=== PATIENT | male | born 1930 | race Caucasian/White ===

== ENCOUNTER 2017-02-28 00:44 | Emergency (ER) | payer OTHER, BC ==
[2017-02-28 01:16] VITALS: TEMP 98.2; BMI 22.4
[2017-02-28] MEDS ORDERED: morphine CARPU-JECT 2 MG/1 ML DISP.SYRIN IVPUSH ONE (04:02)
[2017-02-28] MEDS ORDERED: morphine CARPU-JECT 2 MG/1 ML DISP.SYRIN ONE (04:04)
[2017-02-28 04:28] LABS: BASOPHIL 0.4 % (0-2.0); MCH 31.9 pg (25.7-33.7); MCHC 33.2 g/dl (32.0-35.9); MEAN CELL VOLUME 96.2 fl (80-96); MEAN PLT VOLUME 9.1 fl (7.5-11.1); NEUTROPHILS 54.3 % (42.8-82.8); PLATELET COUNT 145 K/MM3 (134-434); RDW 12.6 % (11.9-15.9); WHITE BLOOD COUNT 7.5 K/mm3 (4.0-10.0)
[2017-02-28 04:41] LABS: INR 1.06 (0.82-1.09); PROTHROMBIN TIME (PATIENT) 11.7 SEC (9.98-11.88)
[2017-02-28] MEDS ORDERED: hydrALAZINE HCL 20 MG/ML VIAL IVPUSH ONE (04:50)
[2017-02-28] MEDS ORDERED: hydrALAZINE HCL 20 MG/ML VIAL ONE (04:52)
[2017-02-28 04:54] LABS: ALBUMIN 3.7 g/dl (3.4-5.0); ALK PHOS 56 U/L (45-117); ANION GAP 9 (8-16); BILIRUBIN,TOTAL 0.5 mg/dL (0.2-1.0); CO2 28 mmol/L (21-32); COCKROFT - GAULT 58.47; CREATININE 0.8 mg/dL (0.7-1.3); GLUCOSE,RANDOM 89 mg/dL (74-106); SGOT/AST 22 U/L (15-37); SGPT/ALT 17 U/L (12-78); TOT PROT 6.2 g/dl (6.4-8.2)
[2017-02-28 05:17] LABS: URINE APPEARANCE CLEAR; URINE BILIRUBIN NEGATIVE (NEGATIVE); URINE BLOOD NEGATIVE (NEGATIVE); URINE COLOR STRAW; URINE GLUCOSE (UA) NEGATIVE (NEGATIVE); URINE KETONE NEGATIVE (NEGATIVE); URINE LEUK ESTERASE NEGATIVE (NEGATIVE); URINE NITRITE NEGATIVE (NEGATIVE); URINE PROTEIN NEGATIVE (NEGATIVE); URINE UROBILINOGEN NEGATIVE E.U./dl (0.2-1.0)
--- NOTE | 2017-02-28 06:27 | PDOC ---
History of Present Illness - General Chief Complaint: Pain Stated Complaint: STOMACH PAIN Time Seen by Provider: 02/28/17 01:52 - History of Present Illness Initial Comments: 02/28/17 06:22 CHIEF COMPLAINT: abdominal pain HISTORY OF PRESENT ILLNESS: 86 yo M with significant PMH of AAA, HTN, HLD, GERD presents to ED with abdominal pain x 2 days. Patient describes the pain as sharp and 10/10. He denies any nausea, vomiting, diarrhea, or rectal bleeding. He denies any chest pain, shortness of breath, or palpitations as this time and complains that his pain is just in his abdomen. No recent travel or sick contacts. PAST MEDICAL HISTORY: Denies past medical history FAMILY HISTORY: Denies SOCIAL HISTORY: Denies tobacco, alcohol, illicit drug use. SURGICAL HISTORY: Denies ALLERGIES: No known drug allergies REVIEW OF SYSTEMS General/Constitutional: Denies fever or chills. Denies weakness, weight change. HEENT: Denies change in vision. Denies ear pain or discharge. Denies sore throat. Cardiovascular: Denies chest pain or shortness of breath. Respiratory: Denies cough, wheezing, or hemoptysis. Gastrointestinal: Abdominal pain. Denies nausea, vomiting, diarrhea or constipation. Denies rectal bleeding. Genitourinary: Denies dysuria, frequency, or change in urination. Musculoskeletal: Denies joint or muscle swelling or pain. Denies neck or back pain. Skin and breasts: Denies rash or easy bruising. Neurologic: Denies headache, vertigo, loss of consciousness, or loss of sensation. PHYSICAL EXAM General Appearance: Well-appearing, appropriately dressed. No apparent distress. HEENT: EOMI, PERRLA, normal ENT inspection, normal voice, TMs normal, pharynx normal. No conjunctival pallor. No photophobia, scleral icterus. Neck: Supple. Trachea midline. No tenderness, rigidity, carotid bruit, stridor , lymphadenopathy, or thyromegaly. Respiratory/Chest: Lungs CTAB. Cardiovascular: RRR. S1, S2. Vascular Pulses: Dorsalis-Pedis (R): 2+, Dorsalis-Pedis (L): 2+ Gastrointestinal/Abdominal: Diffuse tenderness to abdomen, somewhat localized to lower abdomen. Normal bowel sounds. Abdomen soft, non-distended. No tenderness or rebound tenderness. No organomegaly, pulsatile mass, guarding, hernia, hepatomegaly, splenomegaly. Lymphatic: No adenopathy, tenderness. Musculoskeletal/Extremities: Normal inspection. FROM of all extremities, normal capillary refill. Pelvis Stable. No CVA tenderness. No tenderness to extremities, pedal edema, swelling, erythema or deformity. Integumentary: Appropriate color, dry, warm. No cyanosis, erythema, jaundice or rash Neurologic: cloth checker II-XII intact. Fully oriented, alert. Appropriate mood/affect. Motor strength 5/5. No appreciable EOM palsy, facial droop or sensory deficit. 02/28/17 06:28 Past History - Past Medical History Allergies/Adverse Reactions: Allergies Allergy/AdvReac Type Severity Reaction Status Date / Time No Known Drug Allergies Allergy Verified 02/28/17 06:47 Home Medications: Ambulatory Orders Aspirin Coated [Ecotrin -] 81 mg PO DAILY 11/23/13 Olmesartan Medoxomil [Benicar -] 40 mg PO DAILY 11/23/13 Rosuvastatin Calcium [Crestor] 10 mg PO HS 11/23/13 Omeprazole [Prilosec (RX)] 20 mg PO DAILY 07/04/15 Anemia: No Asthma: No Cancer: No Cardiac Disorders: Yes (HAD CARDIAC CATH 04/2013 FOR CHECKUP AND WAS FINE) CVA: No COPD: No CHF: No Dementia: No Diabetes: No GI Disorders: No Disorders: Yes (BPH) HTN: Yes Hypercholesterolemia: Yes Liver Disease: No Seizures: No Thyroid Disease: No - Surgical History Abdominal Surgery: No Appendectomy: No Cardiac Surgery: No Cholecystectomy: No Lung Surgery: No Neurologic Surgery: No Orthopedic Surgery: No - Immunization History Immunization Up to Date: Yes - Psycho/Social/Smoking Cessation Hx Suicidal Ideation: No Smoking History: Never smoked Have you smoked in the past 12 months: No If you are a former smoker, when did you quit?: 1989 Information on smoking cessation initiated: No Hx Alcohol Use: No Drug/Substance Use Hx: No Substance Use Type: None Hx Substance Use Treatment: No *Physical Exam - Vital Signs Last Vital Signs Temp Pulse Resp BP Pulse Ox 98.2 F 62 18 164/70 100 02/28/17 01:12 02/28/17 05:15 02/28/17 05:15 02/28/17 05:15 02/28/17 05:15 ED Treatment Course - LABORATORY CBC & Chemistry Diagram: 02/28/17 04:05 02/28/17 04:05 - ADDITIONAL ORDERS Additional order review: Laboratory Results 02/28/17 02/28/17 02/28/17 04:57 04:05 04:05 WBC 7.5 RBC 3.40 L Hgb 10.8 L Hct 32.7 L MCV 96.2 H MCHC 33.2 RDW 12.6 Plt Count 145 MPV 9.1 Neutrophils % 54.3 Lymphocytes % 31.2 Monocytes % 10.1 Eosinophils % 4.0 Basophils % 0.4 INR Sodium 135 L Potassium 4.1 Chloride 98 Carbon Dioxide 28 Anion Gap 9 BUN 11 Creatinine 0.8 Creat Clearance w eGFR > 60 Random Glucose 89 Calcium 9.0 Total Bilirubin 0.5 D AST 22 ALT 17 D Alkaline Phosphatase 56 D Total Protein 6.2 L Albumin 3.7 Lipase 136 Urine Color Straw Urine Appearance Clear Urine pH 8.0 Urine Protein Negative Urine Glucose (UA) Negative Urine Ketones Negative Urine Blood Negative Urine Nitrite Negative Urine Bilirubin Negative Urine Urobilinogen Negative Ur Leukocyte Esterase Negative 02/28/17 04:05 WBC RBC Hgb Hct MCV MCHC RDW Plt Count MPV Neutrophils % Lymphocytes % Monocytes % Eosinophils % Basophils % INR 1.06 Sodium Potassium Chloride Carbon Dioxide Anion Gap BUN Creatinine Creat Clearance w eGFR Random Glucose Calcium Total Bilirubin AST ALT Alkaline Phosphatase Total Protein Albumin Lipase Urine Color Urine Appearance Urine pH Urine Protein Urine Glucose (UA) Urine Ketones Urine Blood Urine Nitrite Urine Bilirubin Urine Urobilinogen Ur Leukocyte Esterase 02/28/17 04:05 RBC 3.40 L MCV 96.2 H MCHC 33.2 RDW 12.6 MPV 9.1 Neutrophils % 54.3 Lymphocytes % 31.2 Monocytes % 10.1 Eosinophils % 4.0 Basophils % 0.4 - RADIOLOGY Radiology Studies Ordered: Category Date Time Status ABDOMEN & PELVIS CT W/WO CONTR [CT] Stat CT Scan 02/28/17 02:06 Taken - Medications Given in the ED: ED Medications Discontinued Medications Generic Name Dose Route Start Last Admin Trade Name Freq PRN Reason Stop Dose Admin Hydralazine HCl 10 mg 02/28/17 04:50 02/28/17 04:59 Apresoline Injection - IVPUSH 02/28/17 04:51 10 mg ONCE ONE Administration Morphine Sulfate 2 mg 02/28/17 04:02 05/18/17 04:16 Morphine Injection - IVPUSH 02/28/17 04:03 2 mg ONCE ONE Administration Medical Decision Making - Medical Decision Making 02/28/17 06:40 86 yo M with significant PMH of AAA, HTN, HLD, GERD presents to ED with abdominal pain x 2 days. Vitals signs notable for elevated BP 189/94. BP on L arm 171/83, R arm 185/84 -CBC, CMP, PT/INR, lipase, trop -Abdomen & pelvis CTA r/o AAA/dissection -2 mg morphine -10 mg hydralazine Repeat BP 164/70 Awaiting CTA. Case discussed in detail with oncoming emergency provider including history, physical exam and ancillary studies. In brief, this patient is being seen in the ED for a chief complaint of: abdominal pain I have completed the initial assessment interview note and have ordered the following labs: CBC, CMP/PT/INR, lipase, trop I have reviewed the following results: labs Pending results: cta Plan for disposition as follows: pending Oncoming NPA Jannie has assumed care for the patient and will complete the evaluation and treatment. *DC/Admit/Observation/Transfer Diagnosis at time of Disposition: Lower abdominal pain - Discharge Dispostion Disposition: HOME Condition at time of disposition: Good - Patient Instructions Printed Discharge Instructions: DI for Abdominal Pain-Adult Additional Instructions: Please follow-up with both vascular surgeon at [facility] Dr. An and your county bailiff Dr. Pepe Rizvi. Return to ED if your symptoms worsen.
[2017-02-28 07:26] LABS: TROPONIN I < 0.02 ng/ml (0.00-0.05)
--- NOTE | 2017-02-28 07:42 | PDOC ---
*Physical Exam - Vital Signs Last Vital Signs Temp Pulse Resp BP Pulse Ox 98.2 F 64 18 129/60 98 02/28/17 01:12 02/28/17 06:46 02/28/17 06:46 02/28/17 06:46 02/28/17 06:46 ED Treatment Course - LABORATORY CBC & Chemistry Diagram: 02/28/17 04:05 02/28/17 04:05 - ADDITIONAL ORDERS Additional order review: Laboratory Results 02/28/17 02/28/17 02/28/17 04:57 04:05 04:05 INR Sodium 135 L Potassium 4.1 Chloride 98 Carbon Dioxide 28 Anion Gap 9 BUN 11 Creatinine 0.8 Creat Clearance w eGFR > 60 Random Glucose 89 Calcium 9.0 Total Bilirubin 0.5 D AST 22 ALT 17 D Alkaline Phosphatase 56 D Creatine Kinase 74 Troponin I < 0.02 Total Protein 6.2 L Albumin 3.7 Lipase 136 Urine Color Straw Urine Appearance Clear Urine pH 8.0 Urine Protein Negative Urine Glucose (UA) Negative Urine Ketones Negative Urine Blood Negative Urine Nitrite Negative Urine Bilirubin Negative Urine Urobilinogen Negative Ur Leukocyte Esterase Negative 02/28/17 04:05 INR 1.06 Sodium Potassium Chloride Carbon Dioxide Anion Gap BUN Creatinine Creat Clearance w eGFR Random Glucose Calcium Total Bilirubin AST ALT Alkaline Phosphatase Creatine Kinase Troponin I Total Protein Albumin Lipase Urine Color Urine Appearance Urine pH Urine Protein Urine Glucose (UA) Urine Ketones Urine Blood Urine Nitrite Urine Bilirubin Urine Urobilinogen Ur Leukocyte Esterase 02/28/17 04:05 RBC 3.40 L MCV 96.2 H MCHC 33.2 RDW 12.6 MPV 9.1 Neutrophils % 54.3 Lymphocytes % 31.2 Monocytes % 10.1 Eosinophils % 4.0 Basophils % 0.4 - Medications Given in the ED: ED Medications Discontinued Medications Generic Name Dose Route Start Last Admin Trade Name Freq PRN Reason Stop Dose Admin Hydralazine HCl 10 mg 02/28/17 04:50 02/28/17 04:59 Apresoline Injection - IVPUSH 02/28/17 04:51 10 mg ONCE ONE Administration Morphine Sulfate 2 mg 02/28/17 04:02 02/28/17 04:16 Morphine Injection - IVPUSH 02/28/17 04:03 2 mg ONCE ONE Administration Medical Decision Making - Medical Decision Making 02/28/17 07:41 Patient received in sign out from YOLANDA Sharma. patient complaints of lower abdominal pain. Patient awaiting cardiac profile along with CT of the abdomen. Laboratory Tests 02/28/17 02/28/17 04:05 04:05 Alkaline Phosphatase 56 D Troponin I < 0.02 02/28/17 10:20 CT of the abdomen shows moderately thickened distal stomach and proximal duodenum could represent suboptimal distention or mild duodenitis/PUD.. Extensive small bowel diverticulosis is noted. This is diffuse hazy infiltration of the central bowel mesentery. 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 At the point of transition in the vein there is also a tethered flattened appearance of the SMV and proximal region. These vessels also appeared kinked and angulated on the coronal reformatted images with the occluded vessel. These findings are highly suggestive of the presence of band adhesions. There are small inguinal hernias noted bilaterally with short segment of nonobstructive bowel seen in the hernia on the left and a small segment of the urinary bladder and hernia on the right. Patient states pain is not present when lying down but has discomfort with movement. Patient points to the lower left suprapubic region. Patient will be discharged home to follow-up with his PCP Dr. Villar and given copy of report. call placed to Dr. Villar 02/28/17 10:[address] Villar and states patient has this known occluded vein and had been seen by Dr. Walker attempted to place a stent but was unable to an outpatient as fungal vascular physician at [facility] by the name of Dr. 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 He does recommend that I to contact Dr. Pepe Rizvi patient's entry level truck driver since he has upcoming tests and has been involved in patient' s care. 02/28/17 11:[address] Pepe Rizvi and is aware of patient's ER visit today and results of CT. Patient has a follow-up appointment with Dr. An in 2 weeks and has a nuclear medicine test scheduled for the . Patient will be discharged home. *DC/Admit/Observation/Transfer Diagnosis at time of Disposition: Lower abdominal pain - Discharge Dispostion Disposition: HOME Condition at time of disposition: Good - Patient Instructions Printed Discharge Instructions: DI for Abdominal Pain-Adult Additional Instructions: Please follow-up with both vascular surgeon at [facility] Dr. An and your entry level truck driver Dr. Pepe Rizvi. Return to ED if your symptoms worsen.
--- NOTE | 2017-02-28 11:34 | EKG ---
Test Reason : Blood Pressure : / mmHG Vent. Rate : 065 BPM Atrial Rate : 065 BPM P-R Int : 170 ms QRS Dur : 158 ms QT Int : 472 ms P-R-T Axes : 051 061 018 degrees QTc Int : 490 ms NORMAL SINUS RHYTHM RIGHT BUNDLE BRANCH BLOCK ABNORMAL ECG NO PREVIOUS ECGS AVAILABLE Confirmed by MARIBETH SMALLWOOD, CARMEN ([id number]) on 02/28/2017 11:34:19 AM Referred By: Confirmed By:CARMEN STAHL MD
[2017-02-28 12:07] VITALS: BP 154/78; PULSE 82
== END 2017-02-28 12:14 | disposition home or self-care (01) ==
LOC: JER 00:44
PROC: 3E033NZ Introduction of Analgesics, Hypnotics, Sedatives into Peripheral Vein, Percutaneous Approach (ICD-10-PCS; principal; 2017-02-28)
PROC: 3E033GC Introduction of Other Therapeutic Substance into Peripheral Vein, Percutaneous Approach (ICD-10-PCS; 2017-02-28)
DX: R10.30 Lower abdominal pain, unspecified (principal); I71.4 Abdominal aortic aneurysm, without rupture; I10 Essential (primary) hypertension; E78.5 Hyperlipidemia, unspecified; K21.9 Gastro-esophageal reflux disease without esophagitis; N40.0 Benign prostatic hyperplasia without lower urinary tract symptoms; Z98.61 Coronary angioplasty status
CPT/HCPCS: 36415; 74178-TC; 80053; 81003; 82550; 83690; 84484; 85025; 85610; 93005; 93010; 99282-25

== ENCOUNTER 2017-06-17 13:49 | Emergency (ER) | payer OTHER, BC ==
[2017-06-17 14:01] VITALS: BMI 19.4
--- NOTE | 2017-06-17 14:21 | PDOC ---
Attending Attestation - HPI HPI: 06/17/17 15:12 Patient is a 87 year old male with significant PMH of AAA, HTN, HLD, GERD presents to ED with vomiting and abdominal distention. The patient notes that he had a recent (05/10) celiac stent placed @ [facility]. Patient states that he was discharge after a month and was told to do small meals. He states that he has been having meals since being discharged. He notes that 1 day ago he had a huge meal involving donuts, lasagna and coffee. He states that he has not passed gas for 2 days. No recent travel or sick contacts. - Medical Decision Making 06/17/17 15:13 Documentation prepared by TERRENCE Ramon, acting as ophthalmic medical assistant for Luly Cartagena MD. <Kait Matthews - Last Filed: 06/17/17 15:18> - Resident Resident Name: BerthaNeva - ED Attending Attestation I have performed the following: I have examined & evaluated the patient, The case was reviewed & discussed with the resident, I agree w/resident's findings & plan, Exceptions are as noted - Physicial Exam PE: GENERAL: Awake, alert, and fully oriented, in no acute distress HEAD: No signs of trauma EYES: PERRLA, EOMI, sclera anicteric, conjunctiva clear ENT: Auricles normal inspection, hearing grossly normal, nares patent, oropharynx clear without exudates. Moist mucosa NECK: Normal ROM, supple, no lymphadenopathy, JVD, or masses LUNGS: Breath sounds equal, clear to auscultation bilaterally. No wheezes, and no crackles HEART: Regular rate and rhythm, normal S1 and S2, no murmurs, rubs or gallops ABDOMEN: Soft, distended, tympanitic, normoactive bowel sounds. No guarding, no rebound. No masses. +Healing midline abdominal incision. EXTREMITIES: Normal range of motion, no edema. No clubbing or cyanosis. No cords, erythema, or tenderness NEUROLOGICAL: Cranial nerves II through XII grossly intact. Normal speech, normal gait SKIN: Warm, Dry, normal turgor, no rashes or lesions noted. 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 After contacting the covering surgeon for Dr. An at [facility], will obtain ultrasound to evaluate the stent. For the distension, will obtain CT a/p to r/o SBO. <Luly Cartagena - Last Filed: 06/18/17 09:40>
[2017-06-17 14:41] LABS: BASOPHIL 0.2 % (0-2.0); EOSINOPHIL 0.2 % (0-4.5); MCH 33.9 pg (25.7-33.7); MCHC 33.6 g/dl (32.0-35.9); MEAN CELL VOLUME 100.8 fl (80-96); MEAN PLT VOLUME 9.2 fl (7.5-11.1); NEUTROPHILS 61.2 % (42.8-82.8); PLATELET COUNT 242 K/MM3 (134-434); RDW 15.6 % (11.9-15.9); WHITE BLOOD COUNT 10.4 K/mm3 (4.0-10.0)
--- NOTE | 2017-06-17 14:45 | PDOC ---
History of Present Illness - General Chief Complaint: Pain, Acute Stated Complaint: PAIN Time Seen by Provider: 06/17/17 14:06 History Source: Patient, Family - History of Present Illness Initial Comments: 06/17/17 16:08 CC: 1 day h/o of vomiting Patient is a 87 y.o. 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 Patient returned home from his surgery last week and since that time was eating small frequent meals, however, yesterday evening he had a large carbohydrate and fat meal. Patient then complained of throbbing abdominal pain and vomited (yellow, non- bloody) at 2 a.m. yesterday. Patient has vomited three times (all yellowish) prior to presentation and also c/o 1-2 day h/o constipation. Of note, patient' s family @ bedside notes patient was hospitalized following stent placement for approximately four weeks for SBO. Patient denies any chest pain, shortness of breath, diarrhea, or severe abdominal pain. Past History - Past Medical History Allergies/Adverse Reactions: Allergies Allergy/AdvReac Type Severity Reaction Status Date / Time No Known Drug Allergies Allergy Verified 06/17/17 13:51 Home Medications: Ambulatory Orders Aspirin Coated [Ecotrin -] 81 mg PO DAILY 11/23/13 Olmesartan Medoxomil [Benicar -] 40 mg PO DAILY 11/23/13 Rosuvastatin Calcium [Crestor] 10 mg PO HS 11/23/13 Omeprazole [Prilosec (RX)] 20 mg PO DAILY 07/04/15 Clopidogrel Bisulfate [Clopidogrel] 75 mg PO DAILY 06/17/17 Erythromycin Base [Erythromycin] 250 mg PO DAILY 06/17/17 Ondansetron [Ondansetron Odt] 8 mg PO DAILY 06/17/17 Anemia: No Asthma: No Cancer: No Cardiac Disorders: Yes (HAD CARDIAC CATH 04/2013 FOR CHECKUP ANDWAS FINE) CVA: No COPD: No CHF: No Dementia: No Diabetes: No GI Disorders: No Disorders: Yes (BPH) HTN: Yes Hypercholesterolemia: Yes Liver Disease: No Seizures: No Thyroid Disease: No - Surgical History Abdominal Surgery: Yes (abd artery stent) Appendectomy: No Cardiac Surgery: No Cholecystectomy: No GI Surgery: Yes (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) Lung Surgery: No Neurologic Surgery: No Orthopedic Surgery: No - Immunization History Immunization Up to Date: Yes - Psycho/Social/Smoking Cessation Hx Suicidal Ideation: No Smoking History: Never smoked Have you smoked in the past 12 months: No If you are a former smoker, when did you quit?: 1989 Information on smoking cessation initiated: No Hx Alcohol Use: No Drug/Substance Use Hx: No Substance Use Type: None Hx Substance Use Treatment: No Review of Systems - Review of Systems Constitutional: No: Chills, Fever Respiratory: No: Shortness of Breath Cardiac (ROS): No: Chest Pain ABD/GI: Yes: Abdominal Distended, Nausea, Vomiting Hematologic/Lymphatic: No: Blood Clots All Other Systems: Reviewed and Negative *Physical Exam - Vital Signs Last Vital Signs Temp Pulse Resp BP Pulse Ox 97.3 F L 97 H 18 117/83 97 06/17/17 13:51 06/17/17 13:51 06/17/17 13:51 06/17/17 13:51 06/17/17 14:32 - Physical Exam General Appearance: Yes: Nourished, Moderate Distress Neck: positive: Trachea midline, Supple Respiratory/Chest: positive: Lungs Clear, Normal Breath Sounds Cardiovascular: positive: Regular Rhythm, Regular Rate, S1, S2 Gastrointestinal/Abdominal: positive: Decreased BS, Distended, Other (Tympanic) Integumentary: positive: Normal Color, Dry, Warm Neurologic: positive: Fully Oriented, Alert ED Treatment Course - LABORATORY CBC & Chemistry Diagram: 06/17/17 14:24 06/17/17 14:24 - RADIOLOGY Radiology Studies Ordered: Category Date Time Status CHEST PA & LAT [RAD] Stat Radiology 06/17/17 14:18 Ordered Medical Decision Making - Medical Decision Making 06/17/17 14:46 Patient is an 87 y.o. 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 Initial DDx includes SBO vs. illeus vs. bowel stasis vs. gastritis PLAN 1. Lactic Acid 2. CBC, CMP 06/17/17 15:[address] Velasquez at [facility] ( ) covering for patient's surgeon Dr. Babu. Recommends Abdominal U/S with Doppler to evaluate flow in celiac artery as well as Abdominal X-ray. 06/17/17 17:21 Patient's Lactic Acid 2.3, Cr 1.4. Patient given [address] abdomen w/IV contrast (as per general surgery, no CT Abdomen with PO contrast) pending. 06/17/17 21:02 Phone Call received from [facility] [employer] Worker- preliminary read shows SBO + Incarcerated Inguinal Hernia 06/17/17 22:05 Patient to be transferred to [facility] for further surgical evaluation. ED Accepting Physician: Dr. Layo Mahan; Vascular Surgery Accepting Physician: Dr. Travis Brewster *DC/Admit/Observation/Transfer Diagnosis at time of Disposition: Small bowel obstruction - Discharge Dispostion Disposition: TRANSFER ACUTE CARE/OTHER HOSP Condition at time of disposition: Good Admit: No - Referrals Referrals: Jaxon Villar MD [Primary Care Provider] -
[2017-06-17 15:08] LABS: ALBUMIN 4.3 g/dl (3.4-5.0); ANION GAP 13 (8-16); CALCIUM 9.9 mg/dL (8.5-10.1); CO2 31 mmol/L (21-32); GLUCOSE,RANDOM 163 mg/dL (74-106)
[2017-06-17 15:09] LABS: INR 1.01 (0.82-1.09); PROTHROMBIN TIME (PATIENT) 11.1 SEC (9.98-11.88)
[2017-06-17 15:10] LABS: CREATININE 1.4 mg/dL (0.7-1.3); SGPT/ALT 31 U/L (12-78)
[2017-06-17 15:11] LABS: ALK PHOS 87 U/L (45-117); BILIRUBIN,TOTAL 0.5 mg/dL (0.2-1.0); TOT PROT 7.6 g/dl (6.4-8.2)
[2017-06-17 15:12] LABS: SGOT/AST 32 U/L (15-37); TROPONIN I < 0.02 ng/ml (0.00-0.05)
[2017-06-17 15:13] LABS: CPK 70 IU/L (39-308)
[2017-06-17] MEDS ORDERED: SODIUM CHLORIDE 0.9% 1000 ML INFUS.BAG IV ONE (17:08)
[2017-06-17] MEDS ORDERED: SODIUM CHLORIDE 1,000 ML IV STA (17:16)
[2017-06-17] MEDS ORDERED: DOCUSATE SODIUM 100 MG CAPSULE (FP) PO PRN (17:17)
[2017-06-17] MEDS ORDERED: HYDROmorphone HCL CARPU-JECT 1 MG/1 ML DISP.SYRIN IVPB ONE ×2 (17:17→22:19)
[2017-06-17] MEDS ORDERED: HYDROmorphone HCL CARPU-JECT 1 MG/1 ML DISP.SYRIN ONE ×2 (17:19→22:25)
[2017-06-17] MEDS ORDERED: ONDANSETRON 4 MG/2 ML VIAL ONE ×2 (17:23→20:34)
[2017-06-17] MEDS ORDERED: ONDANSETRON 4 MG/2 ML VIAL IVPB ONE ×2 (17:23→20:34)
[2017-06-17 19:00] LABS: INR 1.02 (0.82-1.09); PROTHROMBIN TIME (PATIENT) 11.2 SEC (9.98-11.88)
[2017-06-17 19:02] LABS: ACTIVATED PTT 32.2 SECONDS (26.9-34.4)
[2017-06-17 23:30] VITALS: BP 116/85; PULSE 92; TEMP 97.7
--- NOTE | 2017-06-18 18:05 | EKG ---
Test Reason : Blood Pressure : / mmHG Vent. Rate : 088 BPM Atrial Rate : 088 BPM P-R Int : 136 ms QRS Dur : 140 ms QT Int : 396 ms P-R-T Axes : 027 076 018 degrees QTc Int : 479 ms SINUS RHYTHM WITH FREQUENT VPCs,SINGLE ANDUNIFOCAL RIGHT BUNDLE BRANCH BLOCK ABNORMAL ECG WHEN COMPARED WITH ECG OF 28-FEB-2017 06:51, BASELINE ARTIFACTS REPEAT EKG IF CLINICALLY INDICATED Confirmed by WENDY HOLLIS MD ([id number]) on 06/18/2017 6:04:51 PM Referred By: Confirmed By:WENDY HOLLIS MD
== END 2017-06-18 00:21 | disposition short-term general hospital (02) ==
LOC: JER 13:49
PROC: 3E0337Z Introduction of Electrolytic and Water Balance Substance into Peripheral Vein, Percutaneous Approach (ICD-10-PCS; principal; 2017-06-17)
PROC: 3E033NZ Introduction of Analgesics, Hypnotics, Sedatives into Peripheral Vein, Percutaneous Approach (ICD-10-PCS; 2017-06-17)
PROC: 3E033GC Introduction of Other Therapeutic Substance into Peripheral Vein, Percutaneous Approach (ICD-10-PCS; 2017-06-17)
DX: K56.69 Other intestinal obstruction (principal); Z98.890 Other specified postprocedural states; I10 Essential (primary) hypertension; E78.00 Pure hypercholesterolemia, unspecified; K21.9 Gastro-esophageal reflux disease without esophagitis; Z86.79 Personal history of other diseases of the circulatory system
CPT/HCPCS: 36415; 71020-TC; 74177-TC; 76705-TC; 80053; 83605; 84484; 85025; 85610; 85730; 93005; 93010; 96361; 96374; 96375; 99285-25

== ENCOUNTER 2017-09-20 15:20 | Inpatient (IN) | payer OTHER, BC ==
--- NOTE | 2017-09-20 15:24 | PDOC ---
Rapid Medical Evaluation Time Seen by Provider: 09/20/17 15:23 Medical Evaluation: Allergies Allergy/AdvReac Type Severity Reaction Status Date / Time No Known Drug Allergies Allergy Verified 06/17/17 13:51 09/20/17 15:24 I have performed a brief in-person evaluation of this patient. The patient presents with a chief complaint of: Abd pain w/ n/v. H/o AAA, HTN, HLD, GERD, s/p recent ED visit for abd pain s/p placement of celiac stent at [facility] , found to have high grade SBO and was transferred to [facility]. Surgeon is Dr An at [facility] Pertinent physical exam findings: Stable but appears uncomfortable, actively vomiting in triage w/ diffuse ttp to abd I have ordered the following:cbc/chem/lipase/ua/T&S/coags The patient will proceed to the ED for further evaluation.
[2017-09-20 16:00] LABS: BASOPHIL 0.2 % (0-2.0); EOSINOPHIL 0.7 % (0-4.5); MCH 32.7 pg (25.7-33.7); MEAN CELL VOLUME 96.2 fl (80-96); MEAN PLT VOLUME 8.2 fl (7.5-11.1); NEUTROPHILS 57.7 % (42.8-82.8); PLATELET COUNT 205 K/MM3 (134-434); RDW 12.9 % (11.9-15.9); WHITE BLOOD COUNT 10.2 K/mm3 (4.0-10.0)
[2017-09-20 16:27] LABS: URINE APPEARANCE SLCLOUDY; URINE BILIRUBIN NEGATIVE (NEGATIVE); URINE BLOOD NEGATIVE (NEGATIVE); URINE COLOR DKYELLOW; URINE GLUCOSE (UA) NEGATIVE (NEGATIVE); URINE KETONE NEGATIVE (NEGATIVE); URINE LEUK ESTERASE NEGATIVE (NEGATIVE); URINE NITRITE NEGATIVE (NEGATIVE); URINE PROTEIN NEGATIVE (NEGATIVE); URINE UROBILINOGEN NEGATIVE mg/dL (0.2-1.0)
[2017-09-20 16:31] LABS: INR 0.99 (0.82-1.09); PROTHROMBIN TIME (PATIENT) 11.2 SEC (9.98-11.88)
[2017-09-20 16:43] LABS: ALBUMIN 3.8 g/dl (3.4-5.0); ANION GAP 8 (8-16); BILIRUBIN,TOTAL 0.6 mg/dL (0.2-1.0); CALCIUM 9.4 mg/dL (8.5-10.1); CO2 30 mmol/L (21-32); CREATININE 0.8 mg/dL (0.7-1.3); GLUCOSE,RANDOM 139 mg/dL (74-106); SGOT/AST 32 U/L (15-37); SGPT/ALT 32 U/L (12-78)
[2017-09-20 16:47] LABS: ALK PHOS 77 U/L (45-117); CPK 39 IU/L (39-308); TOT PROT 7.6 g/dl (6.4-8.2); TROPONIN I < 0.02 ng/ml (0.00-0.05)
--- NOTE | 2017-09-20 17:41 | PDOC ---
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 The patient describes his abdominal pain as a constant waxing and waning. Secondary to his abdominal pain, he reports 4 episodes of nonbloody, nonbilious emesis.The patient reports two bowel movements this morning and since then obstipation. He denies any recent fevers, chills, headache or dizziness. He denies any diarrhea or constipation. He denies any recent chest pain or shortness of breath. He denies any recent dysuria, frequency, urgency or hematuria. Allergies: NKA Social History: Nonsmoker. Denies EtOH use and recreational drug use. Primary Care Physician: Dr. Jaxon Villar <Marcelle Weaver - Last Filed: 09/20/17 18:49> <Reza Alicea - Last Filed: 09/20/17 23:39> - General Chief Complaint: Pain, Acute Stated Complaint: COLD SYMPTOMS Time Seen by Provider: 09/20/17 15:23 Past History <Marcelle Weaver - Last Filed: 09/20/17 18:49> - Past Medical History Anemia: No Asthma: No Cancer: No Cardiac Disorders: Yes (HAD CARDIAC CATH 04/2013 FOR CHECKUP ANDWAS FINE) CVA: No COPD: No CHF: No Dementia: No Diabetes: No GI Disorders: No Disorders: Yes (BPH) HTN: Yes Hypercholesterolemia: Yes Liver Disease: No Seizures: No Thyroid Disease: No - Surgical History Abdominal Surgery: Yes (abd artery stent) Appendectomy: No Cardiac Surgery: No Cholecystectomy: No GI Surgery: Yes (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) Lung Surgery: No Neurologic Surgery: No Orthopedic Surgery: No - Immunization History Immunization Up to Date: Yes - Suicide/Smoking/Psychosocial Hx Smoking History: Former smoker Have you smoked in the past 12 months: No If you are a former smoker, when did you quit?: 1989 Information on smoking cessation initiated: No Hx Alcohol Use: No Drug/Substance Use Hx: No Substance Use Type: None Hx Substance Use Treatment: No <Reza Alicea - Last Filed: 09/20/17 23:39> - Past Medical History Allergies/Adverse Reactions: Allergies Allergy/AdvReac Type Severity Reaction Status Date / Time No Known Drug Allergies Allergy Verified 09/20/17 15:29 Home Medications: Ambulatory Orders Aspirin Coated [Ecotrin -] 81 mg PO DAILY 11/23/13 Olmesartan Medoxomil [Benicar -] 40 mg PO DAILY 11/23/13 Rosuvastatin Calcium [Crestor] 10 mg PO HS 11/23/13 Omeprazole [Prilosec (RX)] 20 mg PO DAILY 07/04/15 Clopidogrel Bisulfate [Clopidogrel] 75 mg PO DAILY 06/17/17 Erythromycin Base [Erythromycin] 250 mg PO DAILY 06/17/17 Ondansetron [Ondansetron Odt] 8 mg PO DAILY 06/17/17 Review of Systems - Review of Systems Able to Perform ROS?: Yes Comments:: 09/20/17 18:31 CONSTITUTIONAL: No fever, no chills, no fatigue EYES: No visual changes ENT: No ear pain, no sore throat CARDIOVASCULAR: No chest pain, no palpitations RESPIRATORY: No cough, no SOB GI:+Abdominal pain. +Emesis. No constipation, no diarrhea GENITOURINARY: No dysuria, no frequency, no hematuria MUSKULOSKELETAL: No backpain, no joint pain, no myalgias SKIN: No rash NEURO: No headache All Other Systems: Reviewed and Negative <Marcelle Weaver - Last Filed: 09/20/17 18:49> *Physical Exam - Vital Signs Last Vital Signs Temp Pulse Resp BP Pulse Ox 97.5 F L 79 16 147/98 99 09/20/17 15:24 09/20/17 15:24 09/20/17 15:24 09/20/17 15:24 09/20/17 15:24 - Physical Exam Comments: 09/20/17 18:49 CONSTITUTIONAL: Well-appearing; well-nourished; in no apparent distress HEAD: Normocephalic; atraumatic EYES: PERRL; EOM intact ENMT: +Dry mucous membranes. External appears normal; normal oropharynx NECK: Supple; non-tender; no cervical lymphadenopathy CARD: + 3 of 6 systolic ejection murmur. No rubs, or gallops RESP: Normal chest excursion with respiration; breath sounds clear and equal bilaterally; no wheezes, rhonchi, or rales ABD: +Soft minimally distended tympanic. +Hyperactive bowel sounds. +Tender in the periumbilical area without guarding or rebound. No palpable organomegaly, no palpable hernias EXT: Normal ROM in all four extremities; non-tender to palpation; distal pulses intact SKIN: Warm, dry, no rash NEURO: No focal neurological deficiencies. <Marcelle Weaver - Last Filed: 09/20/17 18:49> - Vital Signs Last Vital Signs Temp Pulse Resp BP Pulse Ox 97.5 F L 79 16 147/98 99 09/20/17 15:24 09/20/17 15:24 09/20/17 15:24 09/20/17 15:24 09/20/17 15:24 <Reza Alicea - Last Filed: 09/20/17 23:39> ED Treatment Course - LABORATORY CBC & Chemistry Diagram: 09/20/17 15:31 09/20/17 15:50 - ADDITIONAL ORDERS Additional order review: Laboratory Results 09/20/17 09/20/17 09/20/17 15:50 15:50 15:50 PT with INR 11.20 INR 0.99 Sodium Potassium Chloride Carbon Dioxide Anion Gap BUN Creatinine Creat Clearance w eGFR Random Glucose Lactic Acid 1.8 Calcium Total Bilirubin AST ALT Alkaline Phosphatase Creatine Kinase Troponin I Total Protein Albumin Lipase Urine Color Urine Appearance Urine pH Ur Specific [place] Urine Protein Urine Glucose (UA) Urine Ketones Urine Blood Urine Nitrite Urine Bilirubin Urine Urobilinogen Blood Type A POSITIVE Antibody Screen Negative 09/20/17 09/20/17 15:50 15:45 PT with INR INR Sodium 133 L Potassium 4.3 Chloride 95 L Carbon Dioxide 30 Anion Gap 8 BUN 11 D Creatinine 0.8 D Creat Clearance w eGFR > 60 Random Glucose 139 H Lactic Acid Calcium 9.4 Total Bilirubin 0.6 AST 32 ALT 32 Alkaline Phosphatase 77 Creatine Kinase 39 Troponin I < 0.02 Total Protein 7.6 Albumin 3.8 Lipase 282 Urine Color Dkyellow Urine Appearance Slcloudy Urine pH 8.0 Ur Specific [place] 1.018 Urine Protein Negative Urine Glucose (UA) Negative Urine Ketones Negative Urine Blood Negative Urine Nitrite Negative Urine Bilirubin Negative Urine Urobilinogen Negative Blood Type Antibody Screen 09/20/17 15:31 RBC 3.90 L MCV 96.2 H MCHC 34.0 RDW 12.9 D MPV 8.2 D Neutrophils % 57.7 Lymphocytes % 33.7 D Monocytes % 7.7 Eosinophils % 0.7 D Basophils % 0.2 <Marcelle Weaver - Last Filed: 09/20/17 18:49> - LABORATORY CBC & Chemistry Diagram: 09/20/17 15:31 09/20/17 15:50 - ADDITIONAL ORDERS Additional order review: Laboratory Results 09/20/17 09/20/17 09/20/17 15:50 15:50 15:50 PT with INR 11.20 INR 0.99 Sodium 133 L Potassium 4.3 Chloride 95 L Carbon Dioxide 30 Anion Gap 8 BUN 11 D Creatinine 0.8 D Creat Clearance w eGFR > 60 Random Glucose 139 H Lactic Acid 1.8 Calcium 9.4 Total Bilirubin 0.6 AST 32 ALT 32 Alkaline Phosphatase 77 Creatine Kinase 39 Troponin I < 0.02 Total Protein 7.6 Albumin 3.8 Lipase 282 Urine Color Urine Appearance Urine pH Ur Specific [place] Urine Protein Urine Glucose (UA) Urine Ketones Urine Blood Urine Nitrite Urine Bilirubin Urine Urobilinogen 09/20/17 15:45 PT with INR INR Sodium Potassium Chloride Carbon Dioxide Anion Gap BUN Creatinine Creat Clearance w eGFR Random Glucose Lactic Acid Calcium Total Bilirubin AST ALT Alkaline Phosphatase Creatine Kinase Troponin I Total Protein Albumin Lipase Urine Color Dkyellow Urine Appearance Slcloudy Urine pH 8.0 Ur Specific [place] 1.018 Urine Protein Negative Urine Glucose (UA) Negative Urine Ketones Negative Urine Blood Negative Urine Nitrite Negative Urine Bilirubin Negative Urine Urobilinogen Negative 09/20/17 15:31 RBC 3.90 L MCV 96.2 H MCHC 34.0 RDW 12.9 D MPV 8.2 D Neutrophils % 57.7 Lymphocytes % 33.7 D Monocytes % 7.7 Eosinophils % 0.7 D Basophils % 0.2 <Reza Alicea - Last Filed: 09/20/17 23:39> Medical Decision Making - Medical Decision Making 09/20/17 19:53 Patient is an 87-year-old male with history of multiple abdominal surgeries, history of SBO in the past who presents with intermittent abdominal pain and several episodes of nonbloody, nonbilious vomiting. 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 Chest x-ray revealed no evidence of free air under the diaphragm. Abdominal series x-ray revealed no evidence of dilated loops of bowel, several air-fluid levels are noted, large amount of retained stool is also noted. Patient is unable tolerate by mouth contrast and will receive NG tube decompression. Will obtain CT that and pelvis to rule out SBO. Will continue to resuscitated with IV fluids. Surgical consult as needed. 09/20/17 22:37 NG tube placed and a proximally 1200 mL of gastric fluid was aspirated with significant improvement in patient's pain. CT of abdomen and pelvis has been obtained. Patient is resting comfortably at this time. Awaiting results. 09/20/17 23:33 CT of abdomen and pelvis shows SBO with gastric distention and NG tube in place. Right posterior infiltrate is noted, patient reports that he has no cough and has been treated for influenza. Will withhold antibiotic therapy at this time. We'll consult surgery. Patient's family wishes the patient to be transferred to Dr. Sabino SHERWOOD at [facility] if he requires surgery. Dr. Herzog's number is [phone] <Reza Alicea - Last Filed: 09/20/17 23:39> *DC/Admit/Observation/Transfer - Attestations Scribe Attestion: 09/20/17 18:30 Documentation prepared by Marcelle Weaver, acting as medical device for Reza Alicea MD. <Marcelle Weaver - Last Filed: 09/20/17 18:49> - Discharge Dispostion Admit: Yes - Attestations Physician Attestion: 09/20/17 19:52 The documentation was prepared by the scribe under my direct supervision. I have reviewed the documentation which correctly represents the findings, medical decision-making and critical action taken by me. <Reza Alicea - Last Filed: 09/20/17 23:39> Diagnosis at time of Disposition: Small bowel obstruction - Discharge Dispostion Condition at time of disposition: Fair - Referrals Referrals: Jaxon Villar MD [Primary Care Provider] - - Patient Instructions - Post Discharge Activity
[2017-09-20] MEDS ORDERED: SODIUM CHLORIDE 500 ML IV STA ×2 (17:51→18:36)
[2017-09-20] MEDS ORDERED: ONDANSETRON 4 MG/2 ML VIAL IVPUSH ONE (18:39)
[2017-09-20] MEDS ORDERED: ONDANSETRON 4 MG/2 ML VIAL ONE (18:42)
[2017-09-20 18:46] LABS: URINE LEUK ESTERASE Negative (NEGATIVE)
[2017-09-20] MEDS ORDERED: morphine CARPU-JECT 2 MG/1 ML DISP.SYRIN IVPUSH ONE ×2 (19:20→19:27)
[2017-09-20] MEDS ORDERED: morphine SULFATE 4 MG/ML VIAL ONE (19:22)
[2017-09-20] MEDS ORDERED: D5-1/2NS+40 MEQ KCL - 40 MEQ/1,000 ML INFUS.BAG IV SCH (23:15)
[2017-09-21] MEDS ORDERED: ACETAMINOPHEN 1000 MG/100 ML VIAL (NON FORMULARY) IVPB ONE (00:19)
[2017-09-21] MEDS ORDERED: ACETAMINOPHEN INJECTION 100 ML IVPB ONE (00:23)
[2017-09-21] MEDS ORDERED: DEXTROSE 5%-0.45% SALINE 1,000 ML IV SCH (01:00)
--- NOTE | 2017-09-21 02:15 | HP ---
CHIEF COMPLAINT: Abdominal Pain PCP: Dr. Villar HISTORY OF PRESENT ILLNESS: Patient is an 87 year old male with a PMHx of HTN, HLD, CAD on Aspirin, Abdominal Aortic Aneurysm, Atheresclerosis of the celiac trunk, SBO with multiple abdominal surgeries who presents today for midepigastric pain described as a sharp intermittent pain occurring throughout the day and is non radiating. Patient states he has been unable to tolerate food today due to the pain. He reports no alleviating or exacerbating factors, however he does report nonbloody nonbilious vomiting that does relieve the pain but returns within minutes. Patient however does report that he was recently diagnosed with the Flu and received treatment for it. Patient does admit to having similar symptoms in the past that were consistent with his previous SBO. Patient reports this summer he was in the hospital at [facility] for two months due to an abdominal surgery. Patient denies any diet changes or changes to his bowels. Patient does report having a colonoscopy 10 years ago and does not know if he needs another one. Patient denies chronic NSAID use. Otherwise, patient denies fever, chills, nausea, chest pain, palpitations, shortness of breath, headaches, dizziness, loss of consciousness, hematuria, dysuria, melena, hematochezia, hematemesis. ER course was notable for: (1) CT abdomen reveals SBO (2) NG tube placed and drained 1200cc (3) Morphine, Zofran and fluids given in ED Recent Travel: [place] three years ago PAST MEDICAL HISTORY: HTN, HLD, CAD on Aspirin, Abdominal Aortic Aneurysm, Atheresclorosis of the celiac trunk, High grade SBO PAST SURGICAL HISTORY: Celiac stenting (2017) Social History: Smoking: Former Smoker. Quit over 25 years ago Alcohol: Wine socially Drugs: Denies Family History: Non-contributory Allergies: No Known Drug Allergies Allergy (Verified 09/20/17 15:29) HOME MEDICATIONS: Home Medications Medication Instructions Recorded Aspirin Coated [Ecotrin -] 81 mg PO DAILY 11/23/13 Olmesartan Medoxomil [Benicar -] 40 mg PO DAILY 11/23/13 Rosuvastatin Calcium [Crestor] 10 mg PO HS 11/23/13 Omeprazole [Prilosec (RX)] 20 mg PO DAILY 07/04/15 Clopidogrel Bisulfate [Clopidogrel] 75 mg PO DAILY 06/17/17 Erythromycin Base [Erythromycin] 250 mg PO DAILY 06/17/17 Ondansetron [Ondansetron Odt] 8 mg PO DAILY 06/17/17 REVIEW OF SYSTEMS CONSTITUTIONAL: Absent: fever, chills, diaphoresis, generalized weakness, malaise, loss of appetite, weight change HEENT: Absent: rhinorrhea, nasal congestion, throat pain, throat swelling, difficulty swallowing, mouth swelling, ear pain, eye pain, visual changes CARDIOVASCULAR: Absent: chest pain, syncope, palpitations, irregular heart rate, lightheadedness , peripheral edema RESPIRATORY: Absent: cough, shortness of breath, dyspnea with exertion, orthopnea, wheezing, stridor, hemoptysis GASTROINTESTINAL: abdominal pain, abdominal distension, nausea, vomiting Absent: diarrhea, constipation, melena, hematochezia GENITOURINARY: Absent: dysuria, frequency, urgency, hesitancy, hematuria, flank pain, genital pain MUSCULOSKELETAL: Absent: myalgia, arthralgia, joint swelling, back pain, neck pain SKIN: Absent: rash, itching, pallor HEMATOLOGIC/IMMUNOLOGIC: Absent: easy bleeding, easy bruising, lymphadenopathy, frequent infections ENDOCRINE: Absent: unexplained weight gain, unexplained weight loss, heat intolerance, cold intolerance NEUROLOGIC: Absent: headache, focal weakness or paresthesias, dizziness, unsteady gait, seizure, mental status changes, bladder or bowel incontinence PSYCHIATRIC: Absent: anxiety, depression, suicidal or homicidal ideation, hallucinations. PHYSICAL EXAMINATION Vital Signs - 24 hr 09/20/17 09/20/17 15:24 22:38 Temperature 97.5 F L Pulse Rate 79 Pulse Rate [ 86 Left Radial] Respiratory 16 18 Rate Blood Pressure 147/98 Blood Pressure 147/90 [Right Arm] O2 Sat by Pulse 99 97 Oximetry (%) GENERAL: Awake, alert, and fully oriented, in no acute distress. HEAD: Normal with no signs of trauma. EYES: Epiphora bilaterally. Pupils equal, round and reactive to light, extraocular movements intact, sclera anicteric, conjunctiva clear. EARS, NOSE, THROAT: NG tube placed draining dark gastric fluid. Oropharynx clear without exudates. Dry mucous membranes. NECK: Normal range of motion, supple without lymphadenopathy, JVD, or masses. LUNGS: Breath sounds equal, clear to auscultation bilaterally. No wheezes, and no crackles. No accessory muscle use. HEART: Regular rate and rhythm, 3/6 systolic ejection murmur in RUSB with normal S1 and S2 without rub or gallop. ABDOMEN: Soft, with tenderness upon palpation of mid-epigastric region, distended with hyperactive bowel sounds, no guarding, no rebound, no masses. V ertical incision scar from above the periumbilical region to the suprapubic region. No hepatomegaly or splenomegaly. MUSCULOSKELETAL: No CVA tenderness. UPPER EXTREMITIES: No peripheral edema. LOWER EXTREMITIES: No peripheral edema. NEUROLOGICAL: Cranial nerves II-XII intact. Normal speech. Motor strength 5/5 bilaterally with sensory intact. No facial droop PSYCHIATRIC: Cooperative. Good eye contact. Appropriate mood and affect. SKIN: Warm, dry, normal turgor, no rashes or lesions noted, normal capillary refill. Laboratory Results - last 24 hr 09/20/17 09/20/17 09/20/17 15:31 15:45 15:50 WBC 10.2 H RBC 3.90 L Hgb 12.7 Hct 37.5 MCV 96.2 H MCH 32.7 MCHC 34.0 RDW 12.9 D Plt Count 205 MPV 8.2 D Neutrophils % 57.7 Lymphocytes % 33.7 D Monocytes % 7.7 Eosinophils % 0.7 D Basophils % 0.2 PT with INR INR Sodium 133 L Potassium 4.3 Chloride 95 L Carbon Dioxide 30 Anion Gap 8 BUN 11 D Creatinine 0.8 D Creat Clearance w eGFR > 60 Random Glucose 139 H Lactic Acid Calcium 9.4 Total Bilirubin 0.6 AST 32 ALT 32 Alkaline Phosphatase 77 Creatine Kinase 39 Troponin I < 0.02 Total Protein 7.6 Albumin 3.8 Lipase 282 Urine Color Dkyellow Urine Appearance Slcloudy Urine pH 8.0 Ur Specific [place] 1.018 Urine Protein Negative Urine Glucose (UA) Negative Urine Ketones Negative Urine Blood Negative Urine Nitrite Negative Urine Bilirubin Negative Urine Urobilinogen Negative Ur Leukocyte Esterase Negative Blood Type Antibody Screen 09/20/17 09/20/17 09/20/17 15:50 15:50 15:50 WBC RBC Hgb Hct MCV MCH MCHC RDW Plt Count MPV Neutrophils % Lymphocytes % Monocytes % Eosinophils % Basophils % PT with INR 11.20 INR 0.99 Sodium Potassium Chloride Carbon Dioxide Anion Gap BUN Creatinine Creat Clearance w eGFR Random Glucose Lactic Acid 1.8 Calcium Total Bilirubin AST ALT Alkaline Phosphatase Creatine Kinase Troponin I Total Protein Albumin Lipase Urine Color Urine Appearance Urine pH Ur Specific [place] Urine Protein Urine Glucose (UA) Urine Ketones Urine Blood Urine Nitrite Urine Bilirubin Urine Urobilinogen Ur Leukocyte Esterase Blood Type A POSITIVE Antibody Screen Negative IMAGES Abdominal X-Ray (09/20/17): In comparison to a CT exam of 06/17/2017 there is no longer definite visualization of a mid to distal small bowel obstruction. Mild to moderate small bowel obstruction may not be demonstrable on radiography. Follow-up CT may be considered. Interval development of increased opacity is seen within the left upper and mid abdomen - ? due to fluid-filled gastric overdistention, splenomegaly versus other pathology. Correlate with CT or close follow-up radiography, as clinically indicated. Rectal fecal retention which is probably moderate. There is no definite radiographic evidence of pneumoperitoneum. A 3.3 cm infrarenal aortic aneurysm noted on CT cannot be appreciated on radiography. CT Abdomen/Pelvis (09/20/17): In comparison to a previous CT exam of 06/17/2017 note is made of marked partial improvement of a mid to distal small bowel obstruction. On the current exam several mid to distal small bowel loops demonstrate mild to moderate distention consistent with residual/recurrent obstruction. Interval resolution of a small amount of free fluid is noted within the abdomen and pelvis. Moderate fluid-filled gastric distention is seen which appears improved in comparison to radiography performed earlier the same date following interval nasogastric tube insertion. Interval development of a small right basilar infiltrate is noted posteriorly. The remainder of the exam demonstrates no definite interval change. 3.4 cm infrarenal aortic aneurysm. Celiac artery stent in place. Chest X-Ray (09/20/17): Since 06/17/2017, the cardiac silhouette remains within normal limits in size. There are minimal atelectatic changes in the right lung base, medially. The rest of the lung is clear. Mediastinum and visualized osseous structures appear intact with mild and dextroscoliosis of the thoracic spine and mild degenerative changes ASSESSMENT/PLAN: Patient is an 87 year old male who presented today with worsening abdominal pain. CT revealed SBO and NG tube was placed with 1200 mls of gastric fluids. Patient admitted for further monitoring and management. Small Bowel Obstruction -Patient has history of SBO s/p celiac stenting. NG tube placed today with around 1200mls of gastric fluid. -CT revealed distal small bowel loops with moderagte distention consistent with obstruction. -Will continue to keep NPO -Continue and maintain NG tube -Pain control with Morphine 2mg IVP Q4H PRN -Hydration with IV NS @75mls/hr -Surgery consult placed. However, Patient's family wishes the patient to be transferred to Dr. Sabino SHERWOOD at [facility] if he requires surgery. Dr. Herzog's number is [phone] -Patient has no fevers, chills, lactic acidosis, not consistent with septic picture. Will monitor off antibiotics for now. HTN-Controlled -Patient currently takes Benicar 40mg daily but we do not have it so placed on Diovan 320mg -Continue to monitor BP HLD -Lipid panel ordered -Continue home medication Crestor 10mg daily CAD -Continue Aspirin 81mg daily F/E/N -IV NS @75mls/hr -Electrolytes wnl -NPO Prophylaxis -High Risk. Heparin 5000 units SQ Q8H for DVT -No GI required Disposition -Full code -Found to have SBO. On NG tube. Awaiting Surgery consult. Will require Inpatient for at least another night Visit type - Emergency Visit Emergency Visit: Yes ED Registration Date: 09/20/17 Care time: The patient presented to the Emergency Department on the above date and was hospitalized for further evaluation of their emergent condition. - New Patient This patient is new to me today: Yes Date on this admission: 09/20/17 - Critical Care Critical Care patient: No
[2017-09-21 03:43] VITALS: BMI 20.3
[2017-09-21] MEDS: SODIUM CHLORIDE 1,000 ML IV SCH ×2 (03:50→21:57)
[2017-09-21] MEDS: morphine SULFATE 4 MG/ML VIAL IVPUSH PRN ×3 (03:53→16:55)
[2017-09-21] MEDS: HEPARIN NA (PORCINE) 5,000 UNITS/ML 1ML VIAL SQ SCH ×3 (06:50→22:01)
--- NOTE | 2017-09-21 07:16 | PN ---
Teaching Attending Note Name of Resident: Katrin Dudley ATTENDING PHYSICIAN STATEMENT I saw and evaluated the patient. I reviewed the resident's note and discussed the case with the resident. I agree with the resident's findings and plan as documented. SUBJECTIVE: 87 y/o Male admitted for abdominal distention and bilious vomiting. PMH as documented in HPI ROS: All systems reviewed and negative other than mentioned. OBJECTIVE: Patient in acute distress with NGT inplace and draining bilious fluid. CVS RRR, S1, S2. LUNGS; CTA no wheezing Abd: Distended, hypoactive bowel sounds, non tender. Ext: nl ROM, Nl pulses, no peripheral edema CBCD WBC 10.2 K/mm3 (4.0-10.0) H 09/20/17 15:31 RBC 3.90 M/mm3 (4.00-5.60) L 09/20/17 15:31 Hgb 12.7 GM/dL (11.7-16.9) 09/20/17 15:31 Hct 37.5 % (35.4-49) 09/20/17 15:31 MCV 96.2 fl (80-96) H 09/20/17 15:31 MCHC 34.0 g/dl (32.0-35.9) 09/20/17 15:31 RDW 12.9 % (11.9-15.9) D 09/20/17 15:31 Plt Count 205 K/MM3 (134-434) 09/20/17 15:31 MPV 8.2 fl (7.5-11.1) D 09/20/17 15:31 CMP Sodium 133 mmol/L (136-145) L 09/20/17 15:50 Potassium 4.3 mmol/L (3.5-5.1) 09/20/17 15:50 Chloride 95 mmol/L (98-107) L 09/20/17 15:50 Carbon Dioxide 30 mmol/L (21-32) 09/20/17 15:50 Anion Gap 8 (8-16) 09/20/17 15:50 BUN 11 mg/dL (7-18) D 09/20/17 15:50 Creatinine 0.8 mg/dL (0.7-1.3) D 09/20/17 15:50 Creat Clearance w eGFR > 60 (>60) 09/20/17 15:50 Calcium 9.4 mg/dL (8.5-10.1) 09/20/17 15:50 Total Bilirubin 0.6 mg/dL (0.2-1.0) 09/20/17 15:50 AST 32 U/L (15-37) 09/20/17 15:50 ALT 32 U/L (12-78) 09/20/17 15:50 Alkaline Phosphatase 77 U/L (45-117) 09/20/17 15:50 Total Protein 7.6 g/dl (6.4-8.2) 09/20/17 15:50 Albumin 3.8 g/dl (3.4-5.0) 09/20/17 15:50 ASSESSMENT AND PLAN: SBO NPO, NGT at low suction. IVF gentle hydration Surgery consult Confirm home medications Case discussed with resident and plans agreed on.
[2017-09-21 09:00] LABS: CHOLESTEROL 85 mg/dL (50-200)
[2017-09-21] MEDS: ASPIRIN COATED 81 MG TABLET.EC PO SCH (10:16)
[2017-09-21] MEDS: VALSARTAN 160 MG TABLET (UD) PO SCH (10:16)
--- NOTE | 2017-09-21 10:31 | CONSULT ---
- Consultation REQUESTING PROVIDER: Reza Alicea MD CONSULT REQUEST: We have been asked to surgically evaluate this patient for abdominal pain and nausea and vomiting PCP:Lorin Leyva HISTORY OF PRESENT ILLNESS: 87 y/o male w/ previous h/o at least 2 abdominal surgeries presents w/ ? 24 hours of nausea and vomiting and abdominal pain associated w/ no flatus and/or BM; he came to the ER for evaluation; all previous surgery was done at [facility] PMHx: hypertension/hyperlipidemia/arterial PVD PSHx: vascular stenting; AAA repair; abdominal surgery Home Medications Medication Instructions Recorded Aspirin Coated [Ecotrin -] 81 mg PO DAILY 11/23/13 Olmesartan Medoxomil [Benicar -] 40 mg PO DAILY 11/23/13 Rosuvastatin Calcium [Crestor] 10 mg PO HS 11/23/13 Omeprazole [Prilosec (RX)] 20 mg PO DAILY 07/04/15 Clopidogrel Bisulfate [Clopidogrel] 75 mg PO DAILY 06/17/17 Erythromycin Base [Erythromycin] 250 mg PO DAILY 06/17/17 Ondansetron [Ondansetron Odt] 8 mg PO DAILY 06/17/17 Allergies Allergy/AdvReac Type Severity Reaction Status Date / Time No Known Drug Allergies Allergy Verified 09/20/17 15:29 REVIEW OF SYSTEMS: as above only PHYSICAL EXAM: GENERAL: Awake, alert, and fully oriented, in no acute distress. HEAD: Normal with no signs of trauma. EYES: , sclera anicteric, conjunctiva clear. NECK: Normal ROM, supple without lymphadenopathy, JVD, or masses. ABDOMEN: Soft, nontender, not distended, normoactive bowel sounds, no guarding, no rebound, no masses. No organomegaly. No hernias; healed midline surgical scar MUSCULOSKELETAL: Normal ROM at all joints. No bony deformities or tenderness. No CVA tenderness. UPPER EXTREMITIES: 2+ pulses, warm, well-perfused. No cyanosis. Cap refill <2 seconds. No peripheral edema. LOWER EXTREMITIES: 2+ pulses, warm, well-perfused. No calf tenderness. No peripheral edema. NEUROLOGICAL: Normal speech, gait not observed. PSYCH: Cooperative. Good eye contact. Appropriate mood and affect. SKIN: Warm, dry, normal turgor, no rashes or lesions noted. Vital Signs Temperature 98.2 F 09/21/17 06:02 Pulse Rate 78 09/21/17 06:02 Respiratory Rate 78 H 09/21/17 06:02 Blood Pressure 132/67 09/21/17 06:02 O2 Sat by Pulse Oximetry (%) 98 09/21/17 02:56 Lab Results WBC 10.2 K/mm3 (4.0-10.0) H 09/20/17 15:31 RBC 3.90 M/mm3 (4.00-5.60) L 09/20/17 15:31 Hgb 12.7 GM/dL (11.7-16.9) 09/20/17 15:31 Hct 37.5 % (35.4-49) 09/20/17 15:31 MCV 96.2 fl (80-96) H 09/20/17 15:31 MCHC 34.0 g/dl (32.0-35.9) 09/20/17 15:31 RDW 12.9 % (11.9-15.9) D 09/20/17 15:31 Plt Count 205 K/MM3 (134-434) 09/20/17 15:31 Sodium 133 mmol/L (136-145) L 09/20/17 15:50 Potassium 4.3 mmol/L (3.5-5.1) 09/20/17 15:50 Chloride 95 mmol/L (98-107) L 09/20/17 15:50 Carbon Dioxide 30 mmol/L (21-32) 09/20/17 15:50 Anion Gap 8 (8-16) 09/20/17 15:50 BUN 11 mg/dL (7-18) D 09/20/17 15:50 Creatinine 0.8 mg/dL (0.7-1.3) D 09/20/17 15:50 Random Glucose 139 mg/dL (74-106) H 09/20/17 15:50 Calcium 9.4 mg/dL (8.5-10.1) 09/20/17 15:50 Blood Type A POSITIVE 09/20/17 15:50 Antibody Screen Negative 09/20/17 15:50 INR 0.99 (0.82-1.09) 09/20/17 15:50 Imaging w/u to date reviewed IMP: SBO; ? resolving PLAN: Suggest NPO/IVF/serial exams; repeat obstructive series today; will f/u. Jamal Lackey MD FACS Visit type - Case Type Case Type: ED Admission - Emergency Emergency Visit: Yes ED Registration Date: 09/20/17 Care time: The patient presented to the Emergency Department on the above date and was hospitalized for further evaluation of their emergent condition. - New patient This patient is new to me today: Yes Date on this admission: 09/21/17 - Critical Care Critical Care patient: No
--- NOTE | 2017-09-21 21:28 | EKG ---
Test Reason : Blood Pressure : / mmHG Vent. Rate : 075 BPM Atrial Rate : 075 BPM P-R Int : 158 ms QRS Dur : 154 ms QT Int : 434 ms P-R-T Axes : 040 070 029 degrees QTc Int : 484 ms NORMAL SINUS RHYTHM RIGHT BUNDLE BRANCH BLOCK ABNORMAL ECG WHEN COMPARED WITH ECG OF 17-JUN-2017 14:09, PREMATURE VENTRICULAR COMPLEXES ARE NO LONGER PRESENT Confirmed by HERNAN FLEMING MD ([id number]) on 09/21/2017 9:28:22 PM Referred By: Confirmed By:HERNAN FLEMING MD
[2017-09-21] MEDS ORDERED: ROSUVASTATIN CA 10 MG TABLET (FP) PO SCH (22:00)
[2017-09-22] MEDS: HEPARIN NA (PORCINE) 5,000 UNITS/ML 1ML VIAL SQ SCH ×3 (05:49→21:57)
[2017-09-22] MEDS: morphine SULFATE 4 MG/ML VIAL IVPUSH PRN (07:12)
[2017-09-22 08:14] LABS: BASOPHIL 0.1 % (0-2.0); EOSINOPHIL 0.3 % (0-4.5); MCH 32.6 pg (25.7-33.7); MCHC 34.1 g/dl (32.0-35.9); MEAN CELL VOLUME 95.7 fl (80-96); MEAN PLT VOLUME 7.9 fl (7.5-11.1); NEUTROPHILS 66.7 % (42.8-82.8); PLATELET COUNT 222 K/MM3 (134-434); RDW 12.5 % (11.9-15.9); WHITE BLOOD COUNT 10.2 K/mm3 (4.0-10.0)
[2017-09-22 08:41] LABS: ALBUMIN 3.2 g/dl (3.4-5.0); ANION GAP 12 (8-16); CALCIUM 8.7 mg/dL (8.5-10.1); CO2 24 mmol/L (21-32); GLUCOSE,RANDOM 74 mg/dL (74-106); PHOSPHOROUS 3.5 mg/dL (2.5-4.9); SGOT/AST 22 U/L (15-37)
[2017-09-22 08:43] LABS: ALK PHOS 66 U/L (45-117); BILIRUBIN,TOTAL 0.7 mg/dL (0.2-1.0); CREATININE 0.8 mg/dL (0.7-1.3); SGPT/ALT 21 U/L (12-78); TOT PROT 6.4 g/dl (6.4-8.2)
[2017-09-22] MEDS: VALSARTAN 160 MG TABLET (UD) PO SCH (09:32)
[2017-09-22] MEDS: ASPIRIN COATED 81 MG TABLET.EC PO SCH (09:32)
--- NOTE | 2017-09-22 10:05 | PN ---
Progress Note (short form) - Note Progress Note: c/o CARVALHO he states since he has not eaten in 2 days. requesting food. +belching and flatus. Had 2 BM yesterday AM which was prior to the pain he developed. was also started on Zpack on saturday which he took on Saturday but does not recall if he took it yesterday. denies Cp, SOB, fever, chills, cough, N/V Current Medications Generic Name Dose Route Start Last Admin Trade Name Freq PRN Reason Stop Dose Admin Aspirin 81 mg 09/21/17 10:00 09/22/17 09:32 Ecotrin - PO Not Given DAILY DEMETRICE Heparin Sodium (Porcine) 5,000 unit 09/21/17 06:00 09/22/17 05:49 Heparin - SQ 5,000 unit TID DEMETRICE Administration Sodium Chloride 1,000 mls @ 75 mls/hr 09/21/17 02:15 09/21/17 21:57 Normal Saline - IV 09/22/17 15:34 75 mls/hr ASDIR DEMETRICE Administration Morphine Sulfate 2 mg 09/21/17 02:09 09/22/17 07:12 Morphine Sulfate IVPUSH 2 mg Q4H PRN Administration PAIN Rosuvastatin Calcium 10 mg 09/21/17 22:00 09/21/17 22:01 Crestor - PO Not Given HS DEMETRICE Valsartan 320 mg 09/21/17 10:00 09/22/17 09:32 Diovan - PO Not Given DAILY DEMETRICE Last Vital Signs Temp Pulse Resp BP Pulse Ox 98.1 F 85 18 159/63 98 09/22/17 09:10 09/22/17 09:10 09/22/17 09:10 09/22/17 09:10 09/21/17 22:00 Intake & Output 09/19/17 09/20/17 09/21/17 09/22/17 23:59 23:59 23:59 23:59 Intake Total 1050 825 Output Total 900 70 Balance 150 755 Weight 122 lb 122 lb 2 oz General NAD CV S1 S2 + Lungs CTA B/L no wheezing/rales/rhonchi Abdomen soft slightly distended. NT. dull to percussion. normoactive BS. previous midline scar, Extremities no pedal edema CBCD WBC 10.2 K/mm3 (4.0-10.0) H 12/10/17 07:00 RBC 3.48 M/mm3 (4.00-5.60) L 09/22/17 07:00 Hgb 11.3 GM/dL (11.7-16.9) L D 09/22/17 07:00 Hct 33.3 % (35.4-49) L 09/22/17 07:00 MCV 95.7 fl (80-96) 09/22/17 07:00 MCHC 34.1 g/dl (32.0-35.9) 09/22/17 07:00 RDW 12.5 % (11.9-15.9) 09/22/17 07:00 Plt Count 222 K/MM3 (134-434) 09/22/17 07:00 MPV 7.9 fl (7.5-11.1) 09/22/17 07:00 CMP Sodium 137 mmol/L (136-145) 09/22/17 07:00 Potassium 3.9 mmol/L (3.5-5.1) 09/22/17 07:00 Chloride 101 mmol/L (98-107) 09/22/17 07:00 Carbon Dioxide 24 mmol/L (21-32) 09/22/17 07:00 Anion Gap 12 (8-16) 09/22/17 07:00 BUN 16 mg/dL (7-18) D 09/22/17 07:00 Creatinine 0.8 mg/dL (0.7-1.3) 09/22/17 07:00 Creat Clearance w eGFR > 60 (>60) 09/22/17 07:00 Calcium 8.7 mg/dL (8.5-10.1) 09/22/17 07:00 Total Bilirubin 0.7 mg/dL (0.2-1.0) 09/22/17 07:00 AST 22 U/L (15-37) D 09/22/17 07:00 ALT 21 U/L (12-78) D 09/22/17 07:00 Alkaline Phosphatase 66 U/L (45-117) 09/22/17 07:00 Total Protein 6.4 g/dl (6.4-8.2) 09/22/17 07:00 Albumin 3.2 g/dl (3.4-5.0) L 09/22/17 07:00 A/P 87yo M with PMH HTN, CAD, Dyslipidemia, AAA, with multiple SBO with recent abdominal surgery at [facility] presented with sudden onset of abdominal pain with vomiting 1. SBO- clinically appears improved. pt not compliant with NGT hooked to suction as pt wants to ambulate the halls. Repeat AXR yesterday appears improved. will obtain one today. +flatus/belching. Cont NPO, IVF and pain control. surgery on board. advance diet per surgery 2. CARVALHO- likely due to being hungry. will give tylenol IV prn 3. CAP- +infiltrate R base seen on CT chest. was started on Zpack 09/20. will resume via IV at this time. complete 5 day course. 4. HTN- slightly above goal. could be due to pain vs holding medications. will cont to hold at this time. 5. dsylipdemia- hold statin 6. CAD - no signs of ACS. hold asa 7. DVT ppx- hep sq 8. spoke with son on phone in presence of pt. answered all questions. verbalized understanding and agreement Visit type - Emergency Visit Emergency Visit: Yes ED Registration Date: 09/20/17 Care time: The patient presented to the Emergency Department on the above date and was hospitalized for further evaluation of their emergent condition. - New Patient This patient is new to me today: Yes Date on this admission: 09/22/17 - Critical Care Critical Care patient: No - Discharge Referral Referred to [facility] Med [facility].C.: No
[2017-09-22] MEDS ORDERED: ACETAMINOPHEN 1000 MG/100 ML VIAL (NON FORMULARY) IVPB PRN (10:19)
[2017-09-22] MEDS: SODIUM CHLORIDE 1,000 ML IV SCH (11:10)
[2017-09-22] MEDS: AZITHROMYCIN IVPB 250 MG in DEXTROSE 5%-WATER - 250 ML IVPB SCH (14:07)
--- NOTE | 2017-09-22 20:46 | PN ---
Progress Note (short form) - Note Progress Note: Attending Surgeon C/O CARVALHO and NGT; passed flatus VSS AF abdomen-soft;flat non tender NGT minimal IMP: resolving sbo PLAN: AXR yesterday and today reviewed; suggest d/c ngt and trial of clear liquids. Jamal Lackey MD FACS
[2017-09-23] MEDS: HEPARIN NA (PORCINE) 5,000 UNITS/ML 1ML VIAL SQ SCH ×3 (06:00→21:23)
[2017-09-23 07:23] LABS: BASOPHIL 0.1 % (0-2.0); EOSINOPHIL 1.3 % (0-4.5); MCH 32.6 pg (25.7-33.7); MCHC 34.3 g/dl (32.0-35.9); MEAN PLT VOLUME 7.8 fl (7.5-11.1); NEUTROPHILS 56.9 % (42.8-82.8); PLATELET COUNT 214 K/MM3 (134-434); RDW 12.7 % (11.9-15.9); WHITE BLOOD COUNT 8.1 K/mm3 (4.0-10.0)
[2017-09-23 08:30] LABS: ANION GAP 11 (8-16); CALCIUM 8.4 mg/dL (8.5-10.1); CO2 25 mmol/L (21-32); CREATININE 0.6 mg/dL (0.7-1.3); GLUCOSE,RANDOM 96 mg/dL (74-106)
[2017-09-23] MEDS: AZITHROMYCIN IVPB 250 MG in DEXTROSE 5%-WATER - 250 ML IVPB SCH (10:42)
--- NOTE | 2017-09-23 10:57 | PN ---
Progress Note (short form) - Note Progress Note: Attending Surgeon Passing flatus; tolerating clear liquids; no BM; some cramps; no vomiting VSS AF abdomen-soft; flat and non tender; o/w negative. IMP: resolved SBO PLAN: Advance diet as tolerated Jamal Lackey MD FACS
[2017-09-23] MEDS: SODIUM CHLORIDE 1,000 ML IV SCH ×2 (14:32→21:30)
--- NOTE | 2017-09-23 17:59 | PN ---
Physical Exam: SUBJECTIVE: Patient seen and examined at bedside. Has been on clears today and experiencing 15-20 minutes of "burning sensation" in his stomach after eating. Passing flatus but no BM. OBJECTIVE: Vital Signs Period Temp Pulse Resp BP Sys/Padilla Pulse Ox Last 24 Hr 97.8 F-98.9 F 67-74 16-20 143-156/72-79 GENERAL: The patient is awake, alert, and fully oriented, in no acute distress. LUNGS: Breath sounds equal, clear to auscultation bilaterally, no wheezes, no crackles, no accessory muscle use. HEART: Regular rate and rhythm, S1, S2 without murmur, rub or gallop. ABDOMEN: Soft, nontender, nondistended, hypoactive bowel sounds, no guarding, no rebound EXTREMITIES: 2+ pulses, warm, well-perfused, no edema. NEUROLOGICAL: Cranial nerves II through XII grossly intact. Normal speech, gait not observed. Laboratory Results - last 24 hr 09/23/17 09/23/17 06:20 06:20 WBC 8.1 RBC 3.14 L Hgb 10.2 L Hct 29.8 L MCV 95.0 MCH 32.6 MCHC 34.3 RDW 12.7 Plt Count 214 MPV 7.8 Neutrophils % 56.9 Lymphocytes % 28.7 D Monocytes % 13.0 H Eosinophils % 1.3 D Basophils % 0.1 Sodium 138 Potassium 3.8 Chloride 102 Carbon Dioxide 25 Anion Gap 11 BUN 9 D Creatinine 0.6 L D Random Glucose 96 D Calcium 8.4 L Current Medications Generic Name Dose Route Start Last Admin Trade Name Freq PRN Reason Stop Dose Admin Acetaminophen 1,000 mg 09/22/17 10:19 Ofirmev Injection - IVPB Q6H PRN FEVER OR PAIN Acetaminophen 650 mg 09/23/17 17:57 09/23/17 18:04 Tylenol - PO 650 mg Q6H PRN Administration FEVER OR PAIN Aspirin 81 mg 09/23/17 20:15 Ecotrin - PO DAILY [facility] Clopidogrel Bisulfate 75 mg 09/24/17 10:00 Plavix - PO DAILY [facility] Heparin Sodium (Porcine) 5,000 unit 09/21/17 06:00 09/23/17 14:29 Heparin - SQ 5,000 unit TID DEMETRICE Administration Azithromycin 250 mg/ Dextrose 250 mls @ 250 mls/hr 09/22/17 10:30 09/23/17 10 :42 IVPB 250 mls/hr DAILY DEMETRICE Administration Sodium Chloride 1,000 mls @ 100 mls/hr 09/22/17 10:30 09/23/17 14:32 Normal Saline - IV 100 mls/hr ASDIR DEMETRICE Administration Morphine Sulfate 2 mg 09/21/17 02:09 09/22/17 07:12 Morphine Sulfate IVPUSH 2 mg Q4H PRN Administration PAIN Pantoprazole Sodium 40 mg 09/23/17 22:00 Protonix - PO BID DEMETRICE Valsartan 320 mg 09/23/17 20:15 Diovan - PO DAILY DEMETRICE ASSESSMENT/PLAN 87 year-old male with a PMH significant for HTN, HLD, CAD, AAA repair, PVD s/p stenting, and multiple SBOs with recent abdominal surgery at [facility]. SBO, resolving --repeat abdominal xray in am --some GI distress with clears, start protonix PO BID --passing flatus, no BM yet Community acquired pneumonia --CT chest: infiltrate right base --afebrile, mild leukocytosis resolved --continue azithromycin Hypertension --BP elevated --restart Diovan Hyperlipidemia --restart rosuvastatin Coronary artery disease --restart ASA, Plavix, rosuvastatin Physical therapy evaluation DVT prophylaxis: subq heparin Full code. Visit type - Emergency Visit Emergency Visit: Yes ED Registration Date: 09/20/17 Care time: The patient presented to the Emergency Department on the above date and was hospitalized for further evaluation of their emergent condition. - New Patient This patient is new to me today: Yes Date on this admission: 09/23/17 - Critical Care Critical Care patient: No
[2017-09-23] MEDS: ACETAMINOPHEN 325 MG TABLET (FP) PO PRN (18:04)
[2017-09-23] MEDS: VALSARTAN 160 MG TABLET (UD) PO SCH (20:39)
[2017-09-23] MEDS: ASPIRIN COATED 81 MG TABLET.EC PO SCH (20:40)
[2017-09-23] MEDS: PANTOPRAZOLE 40 MG TABLET (FP) PO SCH (21:22)
[2017-09-23] MEDS: ROSUVASTATIN CA 10 MG TABLET (FP) PO SCH (21:23)
[2017-09-24] MEDS: HEPARIN NA (PORCINE) 5,000 UNITS/ML 1ML VIAL SQ SCH ×3 (06:38→21:46)
[2017-09-24] MEDS ORDERED: CLOPIDOGREL BISULFATE 75 MG TABLET (FP) PO SCH (10:00)
[2017-09-24] MEDS: AZITHROMYCIN IVPB 250 MG in DEXTROSE 5%-WATER - 250 ML IVPB SCH (10:02)
[2017-09-24] MEDS: PANTOPRAZOLE 40 MG TABLET (FP) PO SCH ×2 (10:03→21:46)
[2017-09-24] MEDS: VALSARTAN 160 MG TABLET (UD) PO SCH (10:03)
[2017-09-24] MEDS: ASPIRIN COATED 81 MG TABLET.EC PO SCH (10:03)
--- NOTE | 2017-09-24 10:07 | CON.CARD ---
Consult Consult Specialty:: Cardiology Referred by:: Dr. Villar Reason for Consultation:: Need for Plavix? - History of Present Illness Chief Complaint: Admitted with Partial SBO and RLL PNA History of Present Illness: 87M with HTN, RBBB, non-obstx CAD, intestinal angina s/p celiac artery stent ( May), previous bowel obstruction/surgery admitted with several days of N/ V and abdominal discomfort, found to have SBO which is now improved. I was asked to see him regarding the need for Plavix therapy. On cardiac ROS: he denies CP, SOB, palps, LE edema, PND, orthopnea. His intestinal angina sx have resolved. His diet was recently advanced and his N/V is improved. - History Source History Provided By: Patient, Medical Record Limitations to Obtaining History: No Limitations - Past Medical History Cardio/Vascular: Yes: CAD (non-obstx; PAD; non-obstx carotid dz), HTN, Hyperlipdemia, Other (3.4cm AAA) Pulmonary: No: Asthma, Bronchitis, Cancer, COPD, O2 Dependent, Pneumonia, Previously Intubated, Pulmonary Embolus, Pulmonary Fibrosis, Sleep Apnea, Other Gastrointestinal: Yes: Other (Intestinal angina s/p celiac artery stent) Renal/: No: Renal Failure, Renal Inusuff, BPH, Cancer, Hematuria, Hemodialysis , Neurogenic Bladder, Renal Calculi, UTI, Other Heme/Onc: No: Anemia, B12 Deficiency, Bleeding Disorder, Cancer, Current Chemotherapy, Current Radiation Therapy, Hemochromatosis, Hypercoaguable State, Myeloproliferative Synd, Sickle Cell Disease, Sickle Cell Trait, Thrombocytopenia, Other Infectious Disease: No: AIDS, C-Diff, Herpes Zoster, HIV, MRSA, STD's, Tuberculosis, VREF, Other Psych: No: Addictions, Anxiety, Bipolar, Depression, Panic, Psychosis, Schizophrenia, Other Musculoskeletal: No: Bursitis, Chronic low back pain, Hemiparesis, Hemiplegia, Osteoarthritis, Paraplegia, Other Rheumatology: No: Fibromyalgia, Gout, Lupus, Rheumatoid Arthritis, Sarcoidosis, Vasculitis, Other ENT: No: Allergic Rhinitis, Sinusitis, Other Dermatology: No: Basal Cell, Cellulitis, Eczema, Melanoma, Psoriasis, Squamous Cell, Other - Past Surgical History Additional Surgical History: Celiac artery stent; bowel surgery at [facility] for SBO - Alcohol/Substance Use Hx Alcohol Use: No - Smoking History Smoking history: Former smoker Have you smoked in the past 12 months: No If you are a former smoker, when did you quit?: 1989 - Social History Usual Living Arrangement: With Spouse ADL: Independent History of Recent Travel: No Home Medications - Allergies Allergies/Adverse Reactions: Allergies Allergy/AdvReac Type Severity Reaction Status Date / Time No Known Drug Allergies Allergy Verified 09/20/17 15:29 - Home Medications Home Medications: Ambulatory Orders Aspirin Coated [Ecotrin -] 81 mg PO DAILY 11/23/13 Olmesartan Medoxomil [Benicar -] 40 mg PO DAILY 11/23/13 Rosuvastatin Calcium [Crestor] 10 mg PO HS 11/23/13 Omeprazole [Prilosec (RX)] 20 mg PO DAILY 07/04/15 Clopidogrel Bisulfate [Clopidogrel] 75 mg PO DAILY 06/17/17 Erythromycin Base [Erythromycin] 250 mg PO DAILY 06/17/17 Ondansetron [Ondansetron Odt] 8 mg PO DAILY 06/17/17 Family Disease History - Family Disease History Family History: Unremarkable (non-contributory to this presentation) Review of Systems Findings/Remarks: See HPI - Review of Systems Constitutional: reports: Weakness Cardiovascular: reports: No Symptoms Respiratory: reports: No Symptoms Gastrointestinal: reports: Bloating, Nausea (nausea now resolved.) Genitourinary: denies: No Symptoms, Burning, Discharge, Dysuria, Flank Pain, Frequency, Hematuria, Incontinence, Lesions, Menses, Pain, Testicular Mass, Testicular Pain, Testicular Swelling, Urgency, Vaginal Bleeding, Other Breasts: denies: No Symptoms Reported, See HPI, Breast Implants, Discharge from Nipple, Lumps, Pain, Skin Changes, Other Musculoskeletal: denies: No Symptoms, Back Pain, Crepitus, Decreased ROM, Extremity Pain, Joint Pain, Joint Swelling, Muscle Pain, Muscle Cramps, Muscle Weakness, Other Integumentary: denies: No Symptoms, Blister, Bruising, Change in Color, Eczema, Erythema, Incision, Lesions, Lump, Pallor, Pruritis, Rash, Wound, Other Neurological: denies: No Symptoms, Change in LOC, Change in Speech, Confusion, Dizziness, Headache, Incoordination, Numbness, Parasthesia, Pre-Existing Deficit , Seizure, Syncope, Tremors, Unsteady Gait, Weakness, Other Endocrine: denies: No Symptoms, Excessive Sweating, Flushing, Increased Hunger, Increased Thirst, Intolerance to Cold, Intolerance to Heat, Unexplained Weight Gain, Unexplained Weight Loss, Other Hematology/Lymphatic: denies: No Symptoms, Easily Bruised, Excessive Bleeding, Swollen Glands, Other Psychiatric: denies: No Symptoms, Altered Sleep Pattern, Anxiety, Depression, Hallucinations, Panic, Paranoia, Suicidal, Other - Risk Factors Known Risk Factors: Yes: Hypercholesterolemia, Hypertension, Smoking, Other (non -obstructive CAD) Vital Signs: Vital Signs Temperature 97.6 F 09/24/17 09:41 Pulse Rate 70 09/24/17 09:41 Respiratory Rate 20 09/24/17 09:41 Blood Pressure 154/81 09/24/17 09:41 O2 Sat by Pulse Oximetry (%) 98 09/23/17 21:00 Constitutional: Yes: No Distress, Calm Eyes: Yes: Conjunctiva Clear, EOM Intact HENT: Yes: Atraumatic, Normocephalic Neck: Yes: Supple, Trachea Midline Respiratory: Yes: CTA Bilaterally (no rales or wheezing) Gastrointestinal: Yes: Soft (non-tender. vertical surgical incision C/D/I) Cardiovascular: Yes: Regular Rate and Rhythm JVD: No Carotid Bruit: No Heart Sounds: Yes: S1, S2 (RRR, murmurs) Edema: No Peripheral Pulses WNL: Yes Neurological: Yes: Alert, Oriented ...Motor Strength: WNL Psychiatric: Yes: WNL, Alert, Oriented - Other Data Labs, Other Data: CBC, BMP 09/23/17 06:20 09/23/17 06:20 INR, PTT INR 0.99 (0.82-1.09) 09/20/17 15:50 09/21: NSR 75bpm, RBBB (chronic) Prior Cardiac Procedures: Cardiac Catheterization (at [facility] several years ago: non -obstructive) Imaging - Results Chest X-ray: Image Reviewed Cat Scan: Report Reviewed EKG: Image Reviewed Problem List - Problems (1) Small bowel obstruction Assessment/Plan: Resolving, further plan as per surgical team Code(s): K56.69 - OTHER INTESTINAL OBSTRUCTION * DO NOT USE * (2) Pneumonia Assessment/Plan: Clinically stable, antibiotics as per PMD Code(s): J18.9 - PNEUMONIA, UNSPECIFIED ORGANISM Qualifiers: Pneumonia type: due to unspecified organism Laterality: right (3) HTN (hypertension) Assessment/Plan: Generally well controlled, continue current Rx with plan to follow closely as outpatient Code(s): I10 - ESSENTIAL (PRIMARY) HYPERTENSION Qualifiers: Hypertension type: essential hypertension Qualified Code(s): I10 - Essential (primary) hypertension (4) CAD (coronary artery disease) Assessment/Plan: Non-obstructive, asx. Continue ASA 81mg daily and statin for LDL goal 70mg/dl Code(s): I25.10 - ATHSCL HEART DISEASE OF [place] CORONARY ARTERY W/O ANG PCTRS Qualifiers: Coronary Disease-Associated Artery/Lesion type: [place] artery Associated angina: without angina (5) PAD (peripheral artery disease) Assessment/Plan: Intestinal angina resolved after placement of celiac artery stent 4 months ago, continue ASA 81mg daily Code(s): I73.9 - PERIPHERAL VASCULAR DISEASE, UNSPECIFIED (6) AAA (abdominal aortic aneurysm) Assessment/Plan: 3.4cm, can monitor with serial US. Would re-image in 6 months; no surgical intervention currently required. Code(s): I71.4 - ABDOMINAL AORTIC ANEURYSM, WITHOUT RUPTURE Qualifiers: Presence of rupture: without rupture Qualified Code(s): I71.4 - Abdominal aortic aneurysm, without rupture (7) Carotid atherosclerosis Assessment/Plan: Mild and non-obstuctive. Continue ASA 81mg daily and statin. Yearly surveillance recommended as outpt. Code(s): I65.29 - OCCLUSION AND STENOSIS OF UNSPECIFIED CAROTID ARTERY Qualifiers: Laterality: bilateral Qualified Code(s): I65.23 - Occlusion and stenosis of bilateral carotid arteries (8) Abnormal ECG Assessment/Plan: Chronic RBBB with no change from prior. Normal EF, non-obstructive CAD. No further inpatient work up required as he is asx with no indication of arrhythmia by history. Outpatient holter may be helpful. Code(s): R94.31 - ABNORMAL ELECTROCARDIOGRAM [ECG] [EKG] (9) Visit for monitoring Plavix therapy Assessment/Plan: Need to clarify details of celiac stent: if Drug Eluting, Plavix usually given for 6 weeks afterwards. His procedure was 4 months ago. Would continue ASA 81mg alone at this point with no clear reason for Plavix therapy. Code(s): Z51.81 - ENCOUNTER FOR THERAPEUTIC DRUG LEVEL MONITORING; Z79.02 - JAIL (CURRENT) USE OF ANTITHROMBOTICS/ANTIPLATELETS
--- NOTE | 2017-09-24 14:55 | DS ---
Physical Examination Vital Signs: Vital Signs Temperature 36.6 C 09/24/17 14:34 Pulse Rate 61 09/24/17 14:34 Respiratory Rate 18 09/24/17 14:34 Blood Pressure 150/88 09/24/17 14:34 O2 Sat by Pulse Oximetry (%) 98 09/23/17 21:00 Constitutional: Yes: Well Nourished, No Distress, Calm Cardiovascular: Yes: Regular Rate and Rhythm. No: Gallop, Murmur, Rub Respiratory: Yes: Regular, CTA Bilaterally. No: Rales, Rhonchi, Wheezes Gastrointestinal: Yes: Normal Bowel Sounds, Soft. No: Distention, Tenderness Extremities: Yes: WNL Edema: No Labs: CBC, BMP 09/23/17 06:20 09/23/17 06:20 Discharge Summary Reason For Visit: SMALL BOWEL OBSTRUCTION Current Active Problems AAA (abdominal aortic aneurysm) (Acute) Abnormal ECG (Acute) CAD (coronary artery disease) (Acute) Carotid atherosclerosis (Acute) HTN (hypertension) (Acute) PAD (peripheral artery disease) (Acute) Pneumonia (Acute) Small bowel obstruction (Acute) Visit for monitoring Plavix therapy (Acute) Hospital Course: Mr Cruz is a very pleasant 87 year old male who comes in with abdominal pain and found to have a mild SBO with a mild CAP. He was admitted to the hospital and seen by surgery. His SBO was managed conservatively and it resolved. His diet was advanced and he tolerated a low residue diet without issue. He was treated with 5 days of azithromycin (he started on 09/20). It was noted he was not on plavix as an outpatient, so this was taken off his home medications and stopped. He is safe for discharge home. 32 minutes spent in preparation of this discharge Condition: Stable - Instructions Diet, Activity, Other Instructions: resume previous diet and activity Referrals: Jaxon Villar MD [Primary Care Provider] - Disposition: HOME - Home Medications Comprehensive Discharge Medication List: Ambulatory Orders Aspirin Coated [Ecotrin -] 81 mg PO DAILY 11/23/13 Olmesartan Medoxomil [Benicar -] 40 mg PO DAILY 11/23/13 Rosuvastatin Calcium [Crestor] 10 mg PO HS 11/23/13 Omeprazole [Prilosec (RX)] 20 mg PO DAILY 07/04/15 Erythromycin Base [Erythromycin] 250 mg PO DAILY 06/17/17 Ondansetron [Zofran *Odt*] 8 mg PO DAILY 06/17/17
[2017-09-24] MEDS: ACETAMINOPHEN 325 MG TABLET (FP) PO PRN (18:01)
[2017-09-24] MEDS: SODIUM CHLORIDE 1,000 ML IV SCH ×2 (18:03→21:46)
[2017-09-24] MEDS: ROSUVASTATIN CA 10 MG TABLET (FP) PO SCH (22:39)
[2017-09-25] MEDS: HEPARIN NA (PORCINE) 5,000 UNITS/ML 1ML VIAL SQ SCH (05:46)
[2017-09-25] MEDS: VALSARTAN 160 MG TABLET (UD) PO SCH (10:01)
[2017-09-25] MEDS: PANTOPRAZOLE 40 MG TABLET (FP) PO SCH (10:01)
[2017-09-25] MEDS: ASPIRIN COATED 81 MG TABLET.EC PO SCH (10:01)
[2017-09-25] MEDS: AZITHROMYCIN IVPB 250 MG in DEXTROSE 5%-WATER - 250 ML IVPB SCH (10:01)
--- NOTE | 2017-09-25 10:27 | PN ---
Progress Note, Physician Chief Complaint: feeling better - Current Medication List Current Medications: Active Medications Acetaminophen (Tylenol -) 650 mg PO Q6H PRN PRN Reason: FEVER OR PAIN Last Admin: 09/24/17 18:01 Dose: 650 mg Aspirin (Ecotrin -) 81 mg PO DAILY [facility] Last Admin: 09/25/17 10:01 Dose: 81 mg Heparin Sodium (Porcine) (Heparin -) 5,000 unit SQ TID [facility] Last Admin: 09/25/17 05:46 Dose: 5,000 unit Azithromycin 250 mg/ Dextrose 250 mls @ 250 mls/hr IVPB DAILY [facility] Last Admin: 09/25/17 10:01 Dose: 250 mls/hr Sodium Chloride (Normal Saline -) 1,000 mls @ 100 mls/hr IV ASDIR [facility] Last Admin: 09/24/17 21:46 Dose: 100 mls/hr Pantoprazole Sodium (Protonix -) 40 mg PO BID [facility] Last Admin: 09/25/17 10:01 Dose: 40 mg Rosuvastatin Calcium (Crestor -) 10 mg PO HS [facility] Last Admin: 09/24/17 22:39 Dose: 10 mg Valsartan (Diovan -) 320 mg PO DAILY [facility] Last Admin: 09/25/17 10:01 Dose: 320 mg - Objective Vital Signs: Vital Signs Temperature 98.1 F 09/25/17 06:00 Pulse Rate 64 09/25/17 06:00 Respiratory Rate 20 09/25/17 06:00 Blood Pressure 156/74 09/25/17 06:00 O2 Sat by Pulse Oximetry (%) 97 09/24/17 21:00 Constitutional: Yes: No Distress Cardiovascular: Yes: Regular Rate and Rhythm Respiratory: Yes: CTA Bilaterally Gastrointestinal: Yes: Soft Edema: No Neurological: Yes: Alert, Oriented ...Motor Strength: WNL Labs: CBC, BMP 09/23/17 06:20 09/23/17 06:20 INR, PTT INR 0.99 (0.82-1.09) 09/20/17 15:50 Problem List - Problems (1) Small bowel obstruction Code(s): K56.69 - OTHER INTESTINAL OBSTRUCTION * DO NOT USE * (2) Pneumonia Code(s): J18.9 - PNEUMONIA, UNSPECIFIED ORGANISM Qualifiers: Pneumonia type: due to unspecified organism Laterality: right (3) HTN (hypertension) Code(s): I10 - ESSENTIAL (PRIMARY) HYPERTENSION Qualifiers: Hypertension type: essential hypertension Qualified Code(s): I10 - Essential (primary) hypertension (4) CAD (coronary artery disease) Code(s): I25.10 - ATHSCL HEART DISEASE OF [place] CORONARY ARTERY W/O ANG PCTRS Qualifiers: Coronary Disease-Associated Artery/Lesion type: [place] artery Associated angina: without angina (5) PAD (peripheral artery disease) Code(s): I73.9 - PERIPHERAL VASCULAR DISEASE, UNSPECIFIED (6) AAA (abdominal aortic aneurysm) Code(s): I71.4 - ABDOMINAL AORTIC ANEURYSM, WITHOUT RUPTURE Qualifiers: Presence of rupture: without rupture Qualified Code(s): I71.4 - Abdominal aortic aneurysm, without rupture (7) Carotid atherosclerosis Code(s): I65.29 - OCCLUSION AND STENOSIS OF UNSPECIFIED CAROTID ARTERY Qualifiers: Laterality: bilateral Qualified Code(s): I65.23 - Occlusion and stenosis of bilateral carotid arteries (8) Abnormal ECG Code(s): R94.31 - ABNORMAL ELECTROCARDIOGRAM [ECG] [EKG] (9) Visit for monitoring Plavix therapy Code(s): Z51.81 - ENCOUNTER FOR THERAPEUTIC DRUG LEVEL MONITORING; Z79.02 - WAITER/WAITRESS INFORMAL (CURRENT) USE OF ANTITHROMBOTICS/ANTIPLATELETS Assessment/Plan Problem List - Problems (1) Small bowel obstruction Assessment/Plan: Resolved. Code(s): K56.69 - OTHER INTESTINAL OBSTRUCTION * DO NOT USE * (2) Pneumonia Assessment/Plan: Clinically stable, antibiotics as per PMD Code(s): J18.9 - PNEUMONIA, UNSPECIFIED ORGANISM Qualifiers: Pneumonia type: due to unspecified organism Laterality: right (3) HTN (hypertension) Assessment/Plan: Generally well controlled, continue current Rx with plan to follow closely as outpatient Code(s): I10 - ESSENTIAL (PRIMARY) HYPERTENSION Qualifiers: Hypertension type: essential hypertension Qualified Code(s): I10 - Essential (primary) hypertension (4) CAD (coronary artery disease) Assessment/Plan: Non-obstructive, asx. 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 Would re-image in 6 months; no surgical intervention currently required. Code(s): I71.4 - ABDOMINAL AORTIC ANEURYSM, WITHOUT RUPTURE Qualifiers: Presence of rupture: without rupture Qualified Code(s): I71.4 - Abdominal aortic aneurysm, without rupture (7) Carotid atherosclerosis Assessment/Plan: Mild and non-obstuctive. Continue ASA 81mg daily and statin. Yearly surveillance recommended as outpt. Code(s): I65.29 - OCCLUSION AND STENOSIS OF UNSPECIFIED CAROTID ARTERY Qualifiers: Laterality: bilateral Qualified Code(s): I65.23 - Occlusion and stenosis of bilateral carotid arteries (8) Abnormal ECG Assessment/Plan: Chronic RBBB with no change from prior. Normal EF, non-obstructive CAD. No further inpatient work up required as he is asx with no indication of arrhythmia by history. Outpatient holter may be helpful. Code(s): R94.31 - ABNORMAL ELECTROCARDIOGRAM [ECG] [EKG] (9) Visit for monitoring Plavix therapy Assessment/Plan: Need to clarify details of celiac stent: if Drug Eluting, Plavix usually given for 6 weeks afterwards. His procedure was 4 months ago. Would continue ASA 81mg alone at this point with no clear reason for Plavix therapy. Code(s): Z51.81 - ENCOUNTER FOR THERAPEUTIC DRUG LEVEL MONITORING; Z79.02 - ALF (CURRENT) USE OF ANTITHROMBOTICS/ANTIPLATELETS
[2017-09-25 15:03] VITALS: BP 156/73; PULSE 71; TEMP 98
== END 2017-09-25 11:27 | disposition home or self-care (01) | DRG 388 ==
LOC: JER 15:20 → JERBED 23:39 → UNDOADMIN 23:52 → JERBED 23:52 → J6S 09-21 03:20
PROVIDERS: ADMIT Internal Medicine; ATTEND Internal Medicine
DX: K56.609 Unspecified intestinal obstruction, unspecified as to partial versus complete obstruction (principal); J18.9 Pneumonia, unspecified organism; I10 Essential (primary) hypertension; E78.5 Hyperlipidemia, unspecified; K21.9 Gastro-esophageal reflux disease without esophagitis; N40.0 Benign prostatic hyperplasia without lower urinary tract symptoms; Z87.891 Personal history of nicotine dependence; I73.9 Peripheral vascular disease, unspecified; R51 Headache; I25.10 Atherosclerotic heart disease of native coronary artery without angina pectoris; I45.10 Unspecified right bundle-branch block; Z95.5 Presence of coronary angioplasty implant and graft; I71.4 Abdominal aortic aneurysm, without rupture
CPT/HCPCS: 36415; 71010-TC; 71250-TC; 74000-TC; 74020-TC; 74176-TC; 80048; 80053; 80061; 81003; 82550; 83605; 83690; 83721; 83735; 84100; 84484; 85025; 85610; 86850; 86900; 86901; 93005; 93010; 99284-25; J1644

== ENCOUNTER 2018-09-17 11:57 | Inpatient (IN) | payer OTHER, BC ==
[2018-09-17 12:14] VITALS: BMI 20.7
[2018-09-17] MEDS ORDERED: ONDANSETRON 4 MG/2 ML VIAL IVPB ONE ×2 (12:30→13:17)
[2018-09-17] MEDS ORDERED: SODIUM CHLORIDE 1,000 ML IV STA ×2 (12:30→13:44)
[2018-09-17] MEDS ORDERED: morphine CARPU-JECT 4 MG/1 ML DISP.SYRIN IVPUSH ONE ×3 (12:30→13:17)
[2018-09-17] MEDS ORDERED: morphine SULFATE 4 MG/ML VIAL ONE ×2 (12:39→13:17)
[2018-09-17] MEDS ORDERED: ONDANSETRON 4 MG/2 ML VIAL ONE ×3 (12:39→15:31)
--- NOTE | 2018-09-17 12:43 | PDOC ---
History of Present Illness - General Chief Complaint: Pain, Acute Stated Complaint: PAIN Time Seen by Provider: 09/17/18 12:25 - History of Present Illness Initial Comments: 09/17/18 12:44 88 M with h/o HTN, HLD, CAD on Aspirin, Abdominal Aortic Aneurysm, Atheresclerosis of the celiac trunk, SBO with multiple abdominal surgeries, presenting to ED with diffuse abdominal pain since this morning. Pt states that he started having "gas pain" that has progressively worsenened. Pt denies N/V. States last BM was yesterday, though he has not passed any flatus today. Pt states pain is similar to previous SBO but worse. Denies F/C. Past History - Past Medical History Allergies/Adverse Reactions: Allergies Allergy/AdvReac Type Severity Reaction Status Date / Time No Known Drug Allergies Allergy Verified 09/17/18 12:09 Home Medications: Ambulatory Orders Aspirin Coated [Ecotrin -] 81 mg PO DAILY 11/23/13 Olmesartan Medoxomil [Benicar -] 20 mg PO DAILY 11/23/13 Rosuvastatin Calcium [Crestor] 10 mg PO HS 11/23/13 Anemia: No Asthma: No Cancer: No Cardiac Disorders: Yes (HAD CARDIAC CATH 04/2013 FOR CHECKUP ANDWAS FINE) CVA: No COPD: No CHF: No Dementia: No Diabetes: No GI Disorders: No Disorders: Yes (BPH) HTN: Yes Hypercholesterolemia: Yes Liver Disease: No Seizures: No Thyroid Disease: No - Surgical History Abdominal Surgery: Yes (abd artery stent) Appendectomy: No Cardiac Surgery: No Cholecystectomy: No 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 No weakness. HEAD, EYES, EARS, NOSE AND THROAT: No change in vision. No ear pain or discharge. No sore throat. CARDIOVASCULAR: No chest pain, no shortness of breath, no loss of consciousness RESPIRATORY: No cough, wheezing, or hemoptysis. GASTROINTESTINAL: + abdominal pain, No nausea, vomiting, diarrhea or constipation. GENITOURINARY: No dysuria, frequency, or change in urination. MUSCULOSKELETAL: No joint or muscle swelling or pain. No neck or back pain. SKIN: No rash NEUROLOGIC: No vertigo, no change in strength/sensation. ENDOCRINE: No increased thirst. No abnormal weight change. HEMATOLOGIC/LYMPHATIC: No anemia, easy bleeding, or history of blood clots. ALLERGIC/IMMUNOLOGIC: No hives or skin allergy. *Physical Exam - Vital Signs Last Vital Signs Temp Pulse Resp BP Pulse Ox 98.2 F 79 16 115/74 100 09/17/18 12:11 09/17/18 12:11 09/17/18 12:11 09/17/18 12:11 09/17/18 12:11 - Physical Exam Comments: 09/17/18 12:43 "GENERAL: Awake, alert, and fully oriented, in no acute distress. HEAD: No signs of trauma EYES: PERRLA, EOMI, sclera anicteric, conjunctiva clear ENT: Auricles normal inspection, hearing grossly normal, nares patent, oropharynx clear without exudates. Moist mucosa NECK: Nontender, no stepoffs, Normal ROM, supple, no lymphadenopathy, JVD, or masses LUNGS: Breath sounds equal, clear to auscultation bilaterally. No wheezes, and no crackles HEART: Regular rate and rhythm, normal S1 and S2, no murmurs, rubs or gallops ABDOMEN: + distention, + diffuse TTP, normoactive bowel sounds. No guarding, no rebound. No masses EXTREMITIES: Normal range of motion, no edema. No clubbing or cyanosis. No cords, erythema, or tenderness NEUROLOGICAL: Cranial nerves II through XII intact. 5/5 strength and sensation in all extremities, Normal speech, normal gait, normal cerebellar function SKIN: Warm, Dry, normal turgor, no rashes or lesions noted. Moderate Sedation - Procedure Monitoring Vital Signs: Procedure Monitoring Vital Signs Temperature 98.2 F 09/17/18 12:11 Pulse Rate 79 09/17/18 12:11 Respiratory Rate 16 09/17/18 12:11 Blood Pressure 115/74 09/17/18 12:11 O2 Sat by Pulse Oximetry (%) 100 09/17/18 12:11 ED Treatment Course - LABORATORY CBC & Chemistry Diagram: 09/17/18 12:50 09/17/18 12:50 - RADIOLOGY Radiology Studies Ordered: Category Date Time Status ABDOMEN & PELVIS CT WITH CONTR [CT] Stat CT Scan 09/17/18 12:30 Ordered Medical Decision Making - Medical Decision Making 09/17/18 12:41 88 M with abdominal pain and distention. Exam notable for diffuse tenderness and hypoactive bowel sounds. Concerning for recurrent SBO. Pt has h/o AAA but last CT shows it was 3cm. Pt with stable vitals, normal distal pulses, making AAA rupture or aortic dissection unlikely. - Labs - CTAP - IVF, morphine 09/17/18 14:34 Labs notable for WBC [address] shows high grade SBO Case discussed with Dr. Abdalla, surgery consult. Agrees with plan to place NGT. Medical management for now. 09/17/18 14:37 Pt admitted to hospitalist. 09/17/18 16:33 Called to bedside as pt's vomit became bloody. Pt's son now at bedside to provide additional history - states that the pt has had previous celiac artery stenosis requiring a stent. Given pt's elevated lactate, SBO, and now new hematemesis, I am concerned for intestinal ischemia. Will initiate transfer to [facility], where pt's vascular surgeon is. 09/17/18 16:[address] Marks, surgeon consumer science teacher at [facility], who has accepted pt for ED to ED transfer *DC/Admit/Observation/Transfer Diagnosis at time of Disposition: SBO (small bowel obstruction) - Discharge Dispostion Disposition: TRANSFER ACUTE CARE/OTHER HOSP - Referrals - Patient Instructions - Post Discharge Activity - Transfer to Acute Care Facility Receiving Facility: [facility]. - Attestations Physician Attestion: 09/17/18 14:38 I, Dr. Jamal Ariza MD, attest that this document has been prepared under my direction and personally reviewed by me in its entirety. I further attest, that it accurately reflects all work, treatment, procedures and medical decision -making performed by me.
[2018-09-17] MEDS ORDERED: MORPHINE SULFATE 2 MG/ML VIAL ONE (12:47)
[2018-09-17 13:11] LABS: BASO % 0.2 % (0-2.0); EOS % 0.2 % (0-4.5); HEMATOCRIT 40.3 % (35.4-49); HEMOGLOBIN 13.3 GM/dL (11.7-16.9); LYMPH % 17.3 % (8-40); MCH 31.6 pg (25.7-33.7); MCHC 33.1 g/dl (32.0-35.9); MEAN CELL VOLUME 95.5 fl (80-96); MEAN PLT VOLUME 8.6 fl (7.5-11.1); MONO % 8.9 % (3.8-10.2); NEUT % 73.4 % (42.8-82.8); PLATELET COUNT 210 K/MM3 (134-434); RBC 4.22 M/mm3 (4.00-5.60); RDW 13.1 % (11.9-15.9); WHITE BLOOD COUNT 14.3 K/mm3 (4.0-10.0)
[2018-09-17] MEDS ORDERED: HYDROmorphone HCL CARPU-JECT 2 MG/1 ML DISP.SYRIN IVPUSH ONE ×2 (13:27→14:17)
[2018-09-17] MEDS ORDERED: HYDROmorphone HCl 2 MG/ML VIAL ONE ×2 (13:27→15:30)
[2018-09-17 13:31] LABS: INR 0.97 (0.83-1.09); PROTHROMBIN TIME (PATIENT) 11.5 SEC (9.7-13.0)
[2018-09-17 13:32] LABS: ALBUMIN 4.4 g/dl (3.4-5.0); ALK PHOS 80 U/L (45-117); ANION GAP 16 MMOL/L (8-16); BILIRUBIN,TOTAL 0.8 mg/dL (0.2-1); BLOOD UREA NITROGEN 12 mg/dL (7-18); CALCIUM 9.5 mg/dL (8.5-10.1); CHLORIDE 94 mmol/L (98-107); CO2 24 mmol/L (21-32); CREATININE 1.3 mg/dL (0.55-1.3); GLUCOSE,RANDOM 114 mg/dL (74-106); LIPASE 113 U/L (73-393); POTASSIUM 3.5 mmol/L (3.5-5.1); SGOT/AST 27 U/L (15-37); SGPT/ALT 22 U/L (13-61); SODIUM 134 mmol/L (136-145); TOT PROT 7.8 g/dl (6.4-8.2)
[2018-09-17 13:33] LABS: ACTIVATED PTT 31.5 SECONDS (25.2-36.5)
[2018-09-17] MEDS ORDERED: HYDROmorphone HCl 2 MG/ML VIAL IVPUSH ONE (15:12)
[2018-09-17] MEDS ORDERED: ONDANSETRON 4 MG/2 ML VIAL IVPUSH ONE ×2 (15:33→16:47)
--- NOTE | 2018-09-17 15:46 | HP ---
Admitting History and Physical - Primary Care Physician PCP: Jaxon Villar - Admission Chief Complaint: abd pain - Past Medical History Cardiovascular: Yes: CAD (non-obstx; PAD; non-obstx carotid dz), HTN, Hyperlipdemia, Other (3.4cm AAA) Gastrointestinal: Yes: Other (Intestinal angina s/p celiac artery stent) - Smoking History Smoking history: Never smoked Have you smoked in the past 12 months: No If you are a former smoker, when did you quit?: 1989 - Alcohol/Substance Use Hx Alcohol Use: No - Social History ADL: Independent History of Recent Travel: No Home Medications - Allergies Allergies/Adverse Reactions: Allergies Allergy/AdvReac Type Severity Reaction Status Date / Time No Known Drug Allergies Allergy Verified 09/17/18 12:09 - Home Medications Home Medications: Ambulatory Orders Aspirin Coated [Ecotrin -] 81 mg PO DAILY 11/23/13 Olmesartan Medoxomil [Benicar -] 20 mg PO DAILY 11/23/13 Rosuvastatin Calcium [Crestor] 10 mg PO HS 11/23/13 Physical Examination Vital Signs: Vital Signs Temperature 98.2 F 09/17/18 12:11 Pulse Rate 95 H 09/17/18 12:40 Respiratory Rate 24 H 09/17/18 12:40 Blood Pressure 194/97 H 09/17/18 12:40 O2 Sat by Pulse Oximetry (%) 98 09/17/18 12:40 Labs: CBC, BMP 09/17/18 12:50 09/17/18 12:50
--- NOTE | 2018-09-17 15:47 | EKG ---
Test Reason : Blood Pressure : / mmHG Vent. Rate : 090 BPM Atrial Rate : 090 BPM P-R Int : 154 ms QRS Dur : 156 ms QT Int : 406 ms P-R-T Axes : 036 063 032 degrees QTc Int : 496 ms NORMAL SINUS RHYTHM RIGHT BUNDLE BRANCH BLOCK ABNORMAL ECG WHEN COMPARED WITH ECG OF 21-SEP-2017 02:02, NO SIGNIFICANT CHANGE WAS FOUND Confirmed by JUSTIN BERRY MD ([id number]) on 09/17/2018 3:47:13 PM Referred By: Confirmed By:JUSTIN BERRY MD
[2018-09-17] MEDS ORDERED: PIPERACILLIN/TAZOB 3.375 GM 3.375 GM in DEXTROSE 5%-WATER - 50 ML IVPB ONE (16:00)
[2018-09-17] MEDS ORDERED: LACTATED RINGERS SOLUTION 1,000 ML/1,000 ML INFUS.BAG IV SCH (16:00)
[2018-09-17 16:47] VITALS: TEMP 98.1
--- NOTE | 2018-09-17 16:54 | CONSULT ---
Consult Consult Specialty:: Internal Medicine Referred by:: ED - History of Present Illness Chief Complaint: sbo History of Present Illness: 88 M with pmh of HTN, HLD, CAD on Aspirin, Abdominal Aortic Aneurysm, Atheresclerosis of the celiac trunk, SBO with multiple complicated abdominal surgeries at [facility] with previous prolonged hospital stay comes in with abd pain, n /v since last night. Pt denies fever/chills or further complaints. Family at bedside. In ED, pt tachycardic,lactic acid 5.9, [id number]. NGT inserted without improvement in symptoms. During my interaction, pt vomiting bloody emesis. NGT advanced - History Source History Provided By: Patient, Family Member Limitations to Obtaining History: Clinical Condition - Past Medical History Cardio/Vascular: Yes: CAD (non-obstx; PAD; non-obstx carotid dz), HTN, Hyperlipdemia, Other (3.4cm AAA) Gastrointestinal: Yes: Other (Intestinal angina s/p celiac artery stent) - Past Surgical History Additional Surgical History: Celiac stenting (2016) - Alcohol/Substance Use Hx Alcohol Use: No - Smoking History Smoking history: Never smoked Have you smoked in the past 12 months: No If you are a former smoker, when did you quit?: 1989 - Social History Usual Living Arrangement: With Spouse ADL: Independent History of Recent Travel: No Home Medications - Allergies Allergies/Adverse Reactions: Allergies Allergy/AdvReac Type Severity Reaction Status Date / Time No Known Drug Allergies Allergy Verified 09/17/18 12:09 - Home Medications Home Medications: Ambulatory Orders Aspirin Coated [Ecotrin -] 81 mg PO DAILY 11/23/13 Olmesartan Medoxomil [Benicar -] 20 mg PO DAILY 11/23/13 Rosuvastatin Calcium [Crestor] 10 mg PO HS 11/23/13 Review of Systems Findings/Remarks: as per hpi Physical Exam Vital Signs: Vital Signs Temperature 98.1 F 09/17/18 16:46 Pulse Rate 109 H 09/17/18 15:40 Respiratory Rate 19 09/17/18 15:40 Blood Pressure 150/85 09/17/18 15:40 O2 Sat by Pulse Oximetry (%) 95 09/17/18 15:40 Constitutional: Yes: Calm, Mild Distress Cardiovascular: Yes: Tachycardia Respiratory: Yes: Regular. No: Accessory Muscle Use, SOB, Tachypnea, Wheezes Gastrointestinal: Yes: Distention, Hematemesis, Tenderness, Vomiting Renal/: Yes: WNL Musculoskeletal: Yes: WNL Extremities: Yes: WNL Edema: No Neurological: Yes: WNL, Alert, Oriented Psychiatric: Yes: WNL, Alert, Oriented Labs: CBC, BMP 09/17/18 12:50 09/17/18 12:50 Imaging - Results Cat Scan: Report Reviewed (Abd/pelvis: High grade SBO, distal ileal region) Problem List - Problems (1) Small bowel obstruction Code(s): K56.69 - OTHER INTESTINAL OBSTRUCTION * DO NOT USE * (2) Lactic acidosis Code(s): E87.2 - ACIDOSIS (3) Leukocytosis Code(s): D72.829 - ELEVATED WHITE BLOOD CELL COUNT, UNSPECIFIED (4) Hematemesis Code(s): K92.0 - HEMATEMESIS Qualifiers: Nausea presence: with nausea Qualified Code(s): K92.0 - Hematemesis Assessment/Plan 88 year old male with complex abdominal surgeries at [facility] and frequent SBOs presents w/ abd pain, n/v/d. Pt noted to be having copious amount of hematemesis post NGT insertion. Need to consider possible ischemic bowel. Considering high acuity and possible need for surgery, upon discussion with family and ED attending, advises ER-ER transfer. PCP informed of plan. 35 minutes spent in reviewing chart, discussion with interdisciplinary team, formulating plan
[2018-09-17 18:15] VITALS: BP 124/76; PULSE 98
== END 2018-09-17 18:24 | disposition short-term general hospital (02) | DRG 388 ==
LOC: JER 11:57 → JERBED 14:38
PROVIDERS: ADMIT Internal Medicine; ATTEND Internal Medicine
PROC: 0D9670Z Drainage of Stomach with Drainage Device, Via Natural or Artificial Opening (ICD-10-PCS; principal; 2018-09-17)
DX: K56.609 Unspecified intestinal obstruction, unspecified as to partial versus complete obstruction (principal); K55.039 Acute (reversible) ischemia of large intestine, extent unspecified; E87.2 Acidosis; K92.0 Hematemesis; K55.9 Vascular disorder of intestine, unspecified; I25.10 Atherosclerotic heart disease of native coronary artery without angina pectoris; I10 Essential (primary) hypertension; E78.5 Hyperlipidemia, unspecified; I71.4 Abdominal aortic aneurysm, without rupture; N40.0 Benign prostatic hyperplasia without lower urinary tract symptoms; R00.0 Tachycardia, unspecified; D72.829 Elevated white blood cell count, unspecified
CPT/HCPCS: 36415; 71045-TC-FY; 74177-TC; 80053; 83605; 83690; 85025; 85610; 85730; 86850; 86900; 86901; 87040; 93005; 93010; 99285-25; J7030

== ENCOUNTER 2020-09-16 02:07 | Inpatient (IN) | payer OTHER, BC ==
[2020-09-16] MEDS ORDERED: LACTATED RINGERS SOLUTION 1000 ML INFUS.BAG IV ONE (04:00)
[2020-09-16 05:23] LABS: BASO % 0.2 % (0-2.0); HEMATOCRIT 34.6 % (35.4-49); HEMOGLOBIN 11.6 GM/dL (11.7-16.9); MCH 31.2 pg (25.7-33.7); MCHC 33.5 g/dl (32.0-35.9); MEAN CELL VOLUME 93.2 fl (80-96); MEAN PLT VOLUME 8.1 fl (7.5-11.1); MONO % 7.7 % (3.8-10.2); NEUT % 72.1 % (42.8-82.8); PLATELET COUNT 129 K/MM3 (134-434); RBC 3.71 M/mm3 (4.00-5.60); RDW 12.6 % (11.9-15.9); WHITE BLOOD COUNT 5.7 K/mm3 (4.0-10.0)
[2020-09-16 05:36] LABS: INR 0.98 (0.83-1.09); PROTHROMBIN TIME (PATIENT) 12.1 SEC (9.7-13.0)
[2020-09-16 05:37] LABS: POTASSIUM 4.5 mmol/L (3.5-5.1)
[2020-09-16 05:38] LABS: ACTIVATED PTT 36.1 SECONDS (25.2-36.5)
[2020-09-16 05:39] LABS: CALCIUM 8.1 mg/dL (8.5-10.1)
[2020-09-16 05:40] LABS: ALBUMIN 2.8 g/dl (3.4-5.0); BLOOD UREA NITROGEN 11.7 mg/dL (7-18)
[2020-09-16 05:43] LABS: BILIRUBIN,DIRECT 0.2 mg/dL (0.0-0.2); CREATININE 0.7 mg/dL (0.55-1.3)
[2020-09-16 05:44] LABS: BILIRUBIN,TOTAL 0.3 mg/dL (0.2-1); TOT PROT 5.7 g/dl (6.4-8.2)
[2020-09-16 06:41] LABS: EPI CELLS 5 /uL (0-25.1); HYALINE CASTS 0 /uL (0-3.1); PH,URINE 8.5 (5.0-8.0); URINE APPEARANCE TURBID; URINE BACTERIA 6 /uL (0-1359); URINE BILIRUBIN NEGATIVE (NEGATIVE); URINE COLOR YELLOW; URINE GLUCOSE (UA) NEGATIVE (NEGATIVE); URINE KETONE NEGATIVE (NEGATIVE); URINE LEUK ESTERASE NEGATIVE (NEGATIVE); URINE NITRITE NEGATIVE (NEGATIVE); URINE PROTEIN 2+ (NEGATIVE); URINE RBC 22 /uL (0-23.9); URINE WBC 2 /uL (0-25.8)
[2020-09-16] MEDS ORDERED: DEXAMETHASONE SOD PHOSPHATE 10 MG/1 ML VIAL IVPUSH ONE (06:54)
[2020-09-16] MEDS ORDERED: ENOXAPARIN NA (PORCINE) 40 MG/0.4 ML DISP.SYRIN SQ ONE ×2 (06:56→08:32)
[2020-09-16] MEDS ORDERED: DEXAMETHASONE SOD PHOSPHATE 4 MG/1 ML VIAL ONE (08:32)
[2020-09-16] MEDS ORDERED: PANTOPRAZOLE SODIUM 40 MG VIAL ONE (10:57)
[2020-09-16] MEDS: PANTOPRAZOLE SODIUM 40 MG VIAL IVPUSH SCH (11:00)
[2020-09-16] MEDS: ASCORBIC ACID 500 MG TABLET (FP) PO SCH ×2 (15:30→21:47)
[2020-09-16] MEDS: ZINC SULFATE 220 MG CAPSULE (FP) PO SCH (15:30)
[2020-09-16] MEDS ORDERED: ASCORBIC ACID 500 MG TABLET (FP) ONE (16:01)
[2020-09-16] MEDS ORDERED: ZINC SULFATE 220 MG CAPSULE (FP) ONE (16:02)
[2020-09-16] MEDS: FAMOTIDINE 20 MG TABLET PO SCH (21:47)
[2020-09-16] MEDS: ROSUVASTATIN CA 10 MG TABLET (FP) PO SCH (21:47)
[2020-09-17 08:46] LABS: HEMATOCRIT 35.8 % (35.4-49); HEMOGLOBIN 12.3 GM/dL (11.7-16.9); MCH 32.1 pg (25.7-33.7); MCHC 34.2 g/dl (32.0-35.9); MEAN CELL VOLUME 93.9 fl (80-96); MEAN PLT VOLUME 8.8 fl (7.5-11.1); PLATELET COUNT 159 K/MM3 (134-434); RBC 3.82 M/mm3 (4.00-5.60); RDW 12.7 % (11.9-15.9); WHITE BLOOD COUNT 8.4 K/mm3 (4.0-10.0)
[2020-09-17 09:27] LABS: CALCIUM 8.4 mg/dL (8.5-10.1)
[2020-09-17 09:30] LABS: PHOSPHOROUS 3.5 mg/dL (2.5-4.9)
[2020-09-17 09:31] LABS: CREATININE 0.7 mg/dL (0.55-1.3)
[2020-09-17] MEDS: PANTOPRAZOLE SODIUM 40 MG VIAL IVPUSH SCH (09:46)
[2020-09-17] MEDS: DEXAMETHASONE SOD PHOSPHATE 4 MG/1 ML VIAL IVPUSH SCH (09:47)
[2020-09-17] MEDS: ASPIRIN COATED 81 MG TABLET.EC PO SCH (09:47)
[2020-09-17] MEDS: LOSARTAN POTASSIUM 100 MG TABLET PO SCH (09:47)
[2020-09-17] MEDS: FAMOTIDINE 20 MG TABLET PO SCH ×2 (09:48→21:22)
[2020-09-17] MEDS: ASCORBIC ACID 500 MG TABLET (FP) PO SCH ×2 (09:48→21:22)
[2020-09-17] MEDS: ZINC SULFATE 220 MG CAPSULE (FP) PO SCH (09:48)
[2020-09-17] MEDS ORDERED: metoPROLOL SUCCINATE 25 MG TAB.SR.24H (FP) PO SCH ×2 (10:00→15:44)
[2020-09-17] MEDS: APIXABAN 5 MG TABLET PO SCH ×2 (11:24→21:21)
[2020-09-17] MEDS ORDERED: MINERAL OIL ENEMA 133 ML ENEMA RC ONE (11:52)
[2020-09-17] MEDS: POLYETHYLENE GLYCOL 3350 119 GM BTL PO SCH (12:26)
[2020-09-17] MEDS ORDERED: metoPROLOL SUCCINATE 25 MG TAB.SR.24H (FP) PO ONE (16:16)
[2020-09-17] MEDS: CHOLECALCIFEROL (VIT D3) 1,000 UNIT (25 MCG) TABLET PO SCH (16:20)
[2020-09-17] MEDS: ROSUVASTATIN CA 10 MG TABLET (FP) PO SCH (21:21)
[2020-09-17] MEDS ORDERED: MELATONIN 5 MG TABLETS PO ONE (23:09)
[2020-09-18 08:53] LABS: BASO % 0.2 % (0-2.0); HEMATOCRIT 35.3 % (35.4-49); HEMOGLOBIN 12.3 GM/dL (11.7-16.9); LYMPH % 10.4 % (8-40); MCH 32.6 pg (25.7-33.7); MCHC 34.8 g/dl (32.0-35.9); MEAN CELL VOLUME 93.6 fl (80-96); MEAN PLT VOLUME 8.5 fl (7.5-11.1); MONO % 6.1 % (3.8-10.2); NEUT % 83.3 % (42.8-82.8); PLATELET COUNT 180 K/MM3 (134-434); RBC 3.77 M/mm3 (4.00-5.60); RDW 12.3 % (11.9-15.9); WHITE BLOOD COUNT 8.4 K/mm3 (4.0-10.0)
[2020-09-18] MEDS ORDERED: PT OWN MED DRAWER 7, Y5N ONE (09:11)
[2020-09-18] MEDS: DEXAMETHASONE SOD PHOSPHATE 4 MG/1 ML VIAL IVPUSH SCH (09:38)
[2020-09-18] MEDS: POLYETHYLENE GLYCOL 3350 119 GM BTL PO SCH (09:39)
[2020-09-18] MEDS: ZINC SULFATE 220 MG CAPSULE (FP) PO SCH (09:39)
[2020-09-18] MEDS: FAMOTIDINE 20 MG TABLET PO SCH ×2 (09:39→21:01)
[2020-09-18] MEDS: APIXABAN 5 MG TABLET PO SCH ×2 (09:39→21:02)
[2020-09-18] MEDS: LOSARTAN POTASSIUM 100 MG TABLET PO SCH (09:39)
[2020-09-18] MEDS: ASPIRIN COATED 81 MG TABLET.EC PO SCH (09:39)
[2020-09-18] MEDS: ASCORBIC ACID 500 MG TABLET (FP) PO SCH ×2 (09:40→21:02)
[2020-09-18] MEDS: PANTOPRAZOLE SODIUM 40 MG VIAL IVPUSH SCH (09:40)
[2020-09-18] MEDS: CHOLECALCIFEROL (VIT D3) 1,000 UNIT (25 MCG) TABLET PO SCH (09:40)
[2020-09-18 10:35] LABS: POTASSIUM 3.8 mmol/L (3.5-5.1)
[2020-09-18 10:42] LABS: CALCIUM 8.4 mg/dL (8.5-10.1)
[2020-09-18 10:43] LABS: ALBUMIN 2.8 g/dl (3.4-5.0); BLOOD UREA NITROGEN 10.2 mg/dL (7-18)
[2020-09-18 10:46] LABS: CREATININE 0.7 mg/dL (0.55-1.3)
[2020-09-18 10:47] LABS: BILIRUBIN,TOTAL 0.5 mg/dL (0.2-1); TOT PROT 5.7 g/dl (6.4-8.2)
[2020-09-18 11:19] LABS: ANISOCYTOSIS 0; MACROCYTOSIS 0; PLATELET ESTIMATE NORMAL
[2020-09-18 13:03] VITALS: BMI 19.8
[2020-09-18] MEDS ORDERED: SODIUM CHLORIDE 1,000 ML IV SCH (13:15)
[2020-09-18] MEDS: ROSUVASTATIN CA 10 MG TABLET (FP) PO SCH (21:02)
[2020-09-19] MEDS ORDERED: ACETAMINOPHEN 325 MG TABLET (FP) PO ONE (02:13)
[2020-09-19] MEDS: SENNOSIDES 8.6MG TABLET (FP) PO SCH ×3 (03:19→21:15)
[2020-09-19] MEDS: DOCUSATE SODIUM 100 MG CAPSULE (FP) PO SCH ×3 (03:19→21:06)
[2020-09-19] MEDS: APIXABAN 5 MG TABLET PO SCH ×2 (09:04→21:06)
[2020-09-19] MEDS: CHOLECALCIFEROL (VIT D3) 1,000 UNIT (25 MCG) TABLET PO SCH (09:05)
[2020-09-19] MEDS: ZINC SULFATE 220 MG CAPSULE (FP) PO SCH (09:05)
[2020-09-19] MEDS: FAMOTIDINE 20 MG TABLET PO SCH ×2 (09:05→21:06)
[2020-09-19] MEDS: ASCORBIC ACID 500 MG TABLET (FP) PO SCH ×2 (09:05→21:06)
[2020-09-19] MEDS: ASPIRIN COATED 81 MG TABLET.EC PO SCH (09:05)
[2020-09-19] MEDS: PANTOPRAZOLE SODIUM 40 MG VIAL IVPUSH SCH (09:05)
[2020-09-19] MEDS: LOSARTAN POTASSIUM 50 MG TABLET PO SCH (09:05)
[2020-09-19 09:11] LABS: BASO % 0.1 % (0-2.0); HEMATOCRIT 33.5 % (35.4-49); HEMOGLOBIN 11.6 GM/dL (11.7-16.9); MCH 32.3 pg (25.7-33.7); MCHC 34.6 g/dl (32.0-35.9); MEAN CELL VOLUME 93.3 fl (80-96); MEAN PLT VOLUME 8.8 fl (7.5-11.1); NEUT % 83.9 % (42.8-82.8); PLATELET COUNT 192 K/MM3 (134-434); RBC 3.59 M/mm3 (4.00-5.60); RDW 12.3 % (11.9-15.9); WHITE BLOOD COUNT 8.6 K/mm3 (4.0-10.0)
[2020-09-19 09:29] LABS: POTASSIUM 3.8 mmol/L (3.5-5.1)
[2020-09-19 09:32] LABS: ALBUMIN 2.6 g/dl (3.4-5.0); BLOOD UREA NITROGEN 12.2 mg/dL (7-18)
[2020-09-19 09:34] LABS: CREATININE 0.6 mg/dL (0.55-1.3)
[2020-09-19 09:36] LABS: BILIRUBIN,TOTAL 0.6 mg/dL (0.2-1)
[2020-09-19 09:37] LABS: TOT PROT 5.6 g/dl (6.4-8.2)
[2020-09-19] MEDS: POLYETHYLENE GLYCOL 3350 119 GM BTL PO SCH (10:23)
[2020-09-19] MEDS ORDERED: ONDANSETRON 4 MG/2 ML VIAL IVPUSH STA (12:58)
[2020-09-19] MEDS ORDERED: MINERAL OIL ENEMA 133 ML ENEMA RC STA (13:03)
[2020-09-19] MEDS: SODIUM CHLORIDE 1 GM TABLET PO SCH ×2 (16:33→21:06)
[2020-09-19] MEDS: ROSUVASTATIN CA 10 MG TABLET (FP) PO SCH (21:06)
[2020-09-19] MEDS ORDERED: MINERAL OIL ENEMA 133 ML ENEMA PR ONE (23:08)
[2020-09-19] MEDS ORDERED: ACETAMINOPHEN 1000 MG/100 ML VIAL (NON FORMULARY) IVPB ONE (23:09)
[2020-09-19] MEDS ORDERED: PROCHLORPERAZINE INJECTION 10 MG/2 ML VIAL IM ONE (23:27)
[2020-09-20 09:20] LABS: POTASSIUM 3.8 mmol/L (3.5-5.1)
[2020-09-20 09:24] LABS: ALBUMIN 2.6 g/dl (3.4-5.0); BLOOD UREA NITROGEN 14.4 mg/dL (7-18); CALCIUM 8.1 mg/dL (8.5-10.1)
[2020-09-20 09:26] LABS: CREATININE 0.6 mg/dL (0.55-1.3)
[2020-09-20 09:28] LABS: BILIRUBIN,TOTAL 1.2 mg/dL (0.2-1); TOT PROT 5.8 g/dl (6.4-8.2)
[2020-09-20] MEDS: LOSARTAN POTASSIUM 50 MG TABLET PO SCH (10:13)
[2020-09-20] MEDS: APIXABAN 5 MG TABLET PO SCH ×2 (10:14→21:25)
[2020-09-20] MEDS: ZINC SULFATE 220 MG CAPSULE (FP) PO SCH (10:14)
[2020-09-20] MEDS: FAMOTIDINE 20 MG TABLET PO SCH ×2 (10:14→21:26)
[2020-09-20] MEDS: CHOLECALCIFEROL (VIT D3) 1,000 UNIT (25 MCG) TABLET PO SCH (10:14)
[2020-09-20] MEDS: POLYETHYLENE GLYCOL 3350 119 GM BTL PO SCH (10:14)
[2020-09-20] MEDS: ASCORBIC ACID 500 MG TABLET (FP) PO SCH ×2 (10:14→21:26)
[2020-09-20] MEDS: SODIUM CHLORIDE 1 GM TABLET PO SCH ×2 (10:14→21:26)
[2020-09-20] MEDS: ASPIRIN COATED 81 MG TABLET.EC PO SCH (10:15)
[2020-09-20] MEDS: DOCUSATE SODIUM 100 MG CAPSULE (FP) PO SCH ×2 (10:15→21:25)
[2020-09-20] MEDS ORDERED: ONDANSETRON 4 MG/2 ML VIAL IVPUSH PRN (11:03)
[2020-09-20] MEDS: PANTOPRAZOLE SODIUM 40 MG VIAL IVPUSH SCH (11:11)
[2020-09-20] MEDS ORDERED: SODIUM CHLORIDE 1,000 ML IV SCH (11:45)
[2020-09-20] MEDS ORDERED: DEXAMETHASONE SOD PHOSPHATE 10 MG/1 ML VIAL IVPUSH SCH (13:00)
[2020-09-20] MEDS: POTASSIUM CHLORIDE 20 MEQ in AMINO ACIDS 4.25%/D5W 1,000 ML IV SCH (13:09)
[2020-09-20] MEDS ORDERED: ACETAMINOPHEN 1000 MG/100 ML VIAL (NON FORMULARY) IVPB PRN (15:46)
[2020-09-20] MEDS ORDERED: PT OWN MED DRAWER 7, Y5N ONE (21:05)
[2020-09-20] MEDS: SENNOSIDES 8.6MG TABLET (FP) PO SCH (21:25)
[2020-09-20] MEDS: ROSUVASTATIN CA 10 MG TABLET (FP) PO SCH (21:25)
[2020-09-20] MEDS ORDERED: REMDESIVIR 200 MG in SODIUM CHLORIDE 210 ML IVPB ONE (23:07)
[2020-09-21 09:12] LABS: EOS % 0.1 % (0-4.5); HEMATOCRIT 32.4 % (35.4-49); HEMOGLOBIN 10.9 GM/dL (11.7-16.9); LYMPH % 5.9 % (8-40); MCH 31.5 pg (25.7-33.7); MCHC 33.6 g/dl (32.0-35.9); MEAN CELL VOLUME 93.9 fl (80-96); MEAN PLT VOLUME 8.3 fl (7.5-11.1); MONO % 8.9 % (3.8-10.2); NEUT % 85.1 % (42.8-82.8); PLATELET COUNT 225 K/MM3 (134-434); RBC 3.45 M/mm3 (4.00-5.60); RDW 12.6 % (11.9-15.9); WHITE BLOOD COUNT 8.1 K/mm3 (4.0-10.0)
[2020-09-21] MEDS: PANTOPRAZOLE SODIUM 40 MG VIAL IVPUSH SCH (09:25)
[2020-09-21] MEDS: DEXAMETHASONE SOD PHOSPHATE 4 MG/1 ML VIAL IVPUSH SCH (09:25)
[2020-09-21] MEDS: SODIUM CHLORIDE 1 GM TABLET PO SCH ×2 (09:25→21:43)
[2020-09-21] MEDS: ASPIRIN COATED 81 MG TABLET.EC PO SCH (09:26)
[2020-09-21] MEDS: DOCUSATE SODIUM 100 MG CAPSULE (FP) PO SCH ×2 (09:26→21:42)
[2020-09-21] MEDS: ASCORBIC ACID 500 MG TABLET (FP) PO SCH ×2 (09:26→21:43)
[2020-09-21] MEDS: FAMOTIDINE 20 MG TABLET PO SCH ×2 (09:26→21:45)
[2020-09-21] MEDS: CHOLECALCIFEROL (VIT D3) 1,000 UNIT (25 MCG) TABLET PO SCH (09:26)
[2020-09-21] MEDS: ZINC SULFATE 220 MG CAPSULE (FP) PO SCH (09:26)
[2020-09-21] MEDS: APIXABAN 5 MG TABLET PO SCH ×2 (09:26→21:43)
[2020-09-21] MEDS: POLYETHYLENE GLYCOL 3350 119 GM BTL PO SCH (09:27)
[2020-09-21] MEDS: LOSARTAN POTASSIUM 50 MG TABLET PO SCH (09:28)
[2020-09-21 09:29] LABS: POTASSIUM 3.4 mmol/L (3.5-5.1)
[2020-09-21 09:33] LABS: BLOOD UREA NITROGEN 15.1 mg/dL (7-18)
[2020-09-21 09:37] LABS: CREATININE 0.5 mg/dL (0.55-1.3)
[2020-09-21] MEDS ORDERED: FUROSEMIDE 20 MG TABLET (FP) PO ONE (11:30)
[2020-09-21] MEDS ORDERED: POTASSIUM CHLORIDE TABS 20 MEQ TABLET.ER (FP) PO ONE (11:30)
[2020-09-21] MEDS: SODIUM CHLORIDE 1,000 ML IV SCH (11:54)
[2020-09-21] MEDS: POTASSIUM CHLORIDE 20 MEQ in AMINO ACIDS 4.25%/D5W 1,000 ML IV SCH (11:55)
[2020-09-21] MEDS ORDERED: POTASSIUM CHLORIDE ORAL LIQUID 20 MEQ/15 ML PO ONE (15:38)
[2020-09-21] MEDS: ROSUVASTATIN CA 10 MG TABLET (FP) PO SCH (21:43)
[2020-09-21] MEDS: SENNOSIDES 8.6MG TABLET (FP) PO SCH (21:43)
[2020-09-21 22:17] LABS: POTASSIUM 4.8 mmol/L (3.5-5.1)
[2020-09-21 22:19] LABS: BLOOD UREA NITROGEN 14.9 mg/dL (7-18)
[2020-09-21 22:23] LABS: CREATININE 0.6 mg/dL (0.55-1.3)
[2020-09-21] MEDS: REMDESIVIR 100 MG in SODIUM CHLORIDE 230 ML IVPB SCH (22:50)
[2020-09-22] MEDS: APIXABAN 5 MG TABLET PO SCH ×2 (09:50→22:54)
[2020-09-22] MEDS: ASCORBIC ACID 500 MG TABLET (FP) PO SCH (09:51)
[2020-09-22] MEDS: SODIUM CHLORIDE 1 GM TABLET PO SCH ×2 (09:51→22:54)
[2020-09-22] MEDS: CHOLECALCIFEROL (VIT D3) 1,000 UNIT (25 MCG) TABLET PO SCH (09:51)
[2020-09-22] MEDS: ASPIRIN COATED 81 MG TABLET.EC PO SCH (09:51)
[2020-09-22] MEDS: ZINC SULFATE 220 MG CAPSULE (FP) PO SCH (09:51)
[2020-09-22] MEDS: LOSARTAN POTASSIUM 50 MG TABLET PO SCH (09:52)
[2020-09-22] MEDS: FAMOTIDINE 20 MG TABLET PO SCH (09:52)
[2020-09-22 09:58] LABS: ALBUMIN 2.3 g/dl (3.4-5.0); BILIRUBIN,TOTAL 0.7 mg/dL (0.2-1); BLOOD UREA NITROGEN 14.8 mg/dL (7-18); TOT PROT 5.4 g/dl (6.4-8.2)
[2020-09-22] MEDS: DEXAMETHASONE SOD PHOSPHATE 4 MG/1 ML VIAL IVPUSH SCH (09:58)
[2020-09-22 10:01] LABS: CALCIUM 8.2 mg/dL (8.5-10.1); CREATININE 0.5 mg/dL (0.55-1.3)
[2020-09-22] MEDS: PANTOPRAZOLE SODIUM 40 MG VIAL IVPUSH SCH (10:01)
[2020-09-22 10:02] LABS: MAGNESIUM 1.8 mg/dL (1.8-2.4)
[2020-09-22] MEDS: POLYETHYLENE GLYCOL 3350 119 GM BTL PO SCH (10:17)
[2020-09-22] MEDS: DOCUSATE SODIUM 100 MG CAPSULE (FP) PO SCH (10:17)
[2020-09-22] MEDS: POTASSIUM CHLORIDE 20 MEQ in AMINO ACIDS 4.25%/D5W 1,000 ML IV SCH (12:21)
[2020-09-22] MEDS: SODIUM CHLORIDE 1,000 ML IV SCH (12:21)
[2020-09-22 20:55] LABS: POTASSIUM 4.4 mmol/L (3.5-5.1)
[2020-09-22 20:58] LABS: BLOOD UREA NITROGEN 14.4 mg/dL (7-18)
[2020-09-22 21:01] LABS: CREATININE 0.5 mg/dL (0.55-1.3)
[2020-09-22] MEDS: REMDESIVIR 100 MG in SODIUM CHLORIDE 230 ML IVPB SCH (22:54)
[2020-09-22] MEDS: ROSUVASTATIN CA 10 MG TABLET (FP) PO SCH (22:54)
[2020-09-22] MEDS: SENNOSIDES 8.6MG TABLET (FP) PO SCH (22:54)
[2020-09-23] MEDS ORDERED: amLODIPine BESYLATE 5 MG TABLET (FP) PO ONE (02:22)
[2020-09-23 09:46] LABS: BASO % 0.3 % (0-2.0); EOS % 0.5 % (0-4.5); HEMATOCRIT 32.5 % (35.4-49); LYMPH % 10.3 % (8-40); MCH 31.1 pg (25.7-33.7); MCHC 33.8 g/dl (32.0-35.9); MEAN CELL VOLUME 91.9 fl (80-96); MEAN PLT VOLUME 8.2 fl (7.5-11.1); MONO % 12.9 % (3.8-10.2); PLATELET COUNT 340 K/MM3 (134-434); RBC 3.54 M/mm3 (4.00-5.60); RDW 12.4 % (11.9-15.9); WHITE BLOOD COUNT 9.7 K/mm3 (4.0-10.0)
[2020-09-23 10:04] LABS: POTASSIUM 3.7 mmol/L (3.5-5.1)
[2020-09-23 10:08] LABS: ALBUMIN 2.2 g/dl (3.4-5.0); BLOOD UREA NITROGEN 12.8 mg/dL (7-18)
[2020-09-23 10:12] LABS: CREATININE 0.4 mg/dL (0.55-1.3)
[2020-09-23 10:13] LABS: BILIRUBIN,TOTAL 0.7 mg/dL (0.2-1); TOT PROT 5.3 g/dl (6.4-8.2)
[2020-09-23] MEDS: ASPIRIN COATED 81 MG TABLET.EC PO SCH (10:15)
[2020-09-23] MEDS: LOSARTAN POTASSIUM 50 MG TABLET PO SCH (10:15)
[2020-09-23] MEDS: APIXABAN 5 MG TABLET PO SCH ×2 (10:15→22:31)
[2020-09-23] MEDS: SODIUM CHLORIDE 1 GM TABLET PO SCH ×2 (10:15→22:31)
[2020-09-23] MEDS: POLYETHYLENE GLYCOL 3350 119 GM BTL PO SCH (10:17)
[2020-09-23 10:18] LABS: CALCIUM 7.8 mg/dL (8.5-10.1)
[2020-09-23] MEDS: PANTOPRAZOLE SODIUM 40 MG VIAL IVPUSH SCH (10:43)
[2020-09-23] MEDS: ROSUVASTATIN CA 10 MG TABLET (FP) PO SCH (22:31)
[2020-09-23] MEDS: REMDESIVIR 100 MG in SODIUM CHLORIDE 230 ML IVPB SCH (22:31)
[2020-09-23] MEDS: SENNOSIDES 8.6MG TABLET (FP) PO SCH (22:31)
[2020-09-24] MEDS ORDERED: ACETAMINOPHEN 325 MG TABLET (FP) PO ONE (06:06)
[2020-09-24] MEDS ORDERED: ACETAMINOPHEN 325 MG TABLET (FP) ONE (06:18)
[2020-09-24 09:10] LABS: BASO % 0.2 % (0-2.0); EOS % 0.6 % (0-4.5); HEMATOCRIT 30.8 % (35.4-49); HEMOGLOBIN 10.3 GM/dL (11.7-16.9); LYMPH % 10.1 % (8-40); MCH 30.8 pg (25.7-33.7); MCHC 33.5 g/dl (32.0-35.9); MEAN CELL VOLUME 91.8 fl (80-96); MONO % 12.4 % (3.8-10.2); NEUT % 76.7 % (42.8-82.8); PLATELET COUNT 345 K/MM3 (134-434); RBC 3.35 M/mm3 (4.00-5.60); RDW 12.3 % (11.9-15.9); WHITE BLOOD COUNT 6.9 K/mm3 (4.0-10.0)
[2020-09-24 09:37] LABS: POTASSIUM 3.6 mmol/L (3.5-5.1)
[2020-09-24 09:55] LABS: ALBUMIN 2.1 g/dl (3.4-5.0); BLOOD UREA NITROGEN 10.7 mg/dL (7-18)
[2020-09-24 09:56] LABS: CALCIUM 7.6 mg/dL (8.5-10.1)
[2020-09-24 09:58] LABS: BILIRUBIN,TOTAL 0.8 mg/dL (0.2-1); CREATININE 0.4 mg/dL (0.55-1.3); TOT PROT 4.7 g/dl (6.4-8.2)
[2020-09-24] MEDS: ASPIRIN COATED 81 MG TABLET.EC PO SCH (10:23)
[2020-09-24] MEDS: APIXABAN 5 MG TABLET PO SCH ×2 (10:23→21:19)
[2020-09-24] MEDS: LOSARTAN POTASSIUM 50 MG TABLET PO SCH (10:23)
[2020-09-24] MEDS: SODIUM CHLORIDE 1 GM TABLET PO SCH ×2 (10:23→21:19)
[2020-09-24] MEDS: POLYETHYLENE GLYCOL 3350 119 GM BTL PO SCH (11:14)
[2020-09-24] MEDS: PANTOPRAZOLE SODIUM 40 MG VIAL IVPUSH SCH (11:14)
[2020-09-24] MEDS: ROSUVASTATIN CA 10 MG TABLET (FP) PO SCH (21:19)
[2020-09-24] MEDS: SENNOSIDES 8.6MG TABLET (FP) PO SCH (21:19)
[2020-09-24] MEDS: REMDESIVIR 100 MG in SODIUM CHLORIDE 230 ML IVPB SCH (23:46)
[2020-09-25 08:37] LABS: BASO % 0.1 % (0-2.0); EOS % 0.8 % (0-4.5); HEMATOCRIT 30.5 % (35.4-49); HEMOGLOBIN 10.4 GM/dL (11.7-16.9); LYMPH % 11.9 % (8-40); MCH 31.3 pg (25.7-33.7); MCHC 34.1 g/dl (32.0-35.9); MEAN PLT VOLUME 7.9 fl (7.5-11.1); MONO % 14.2 % (3.8-10.2); PLATELET COUNT 384 K/MM3 (134-434); RBC 3.32 M/mm3 (4.00-5.60); RDW 12.4 % (11.9-15.9); WHITE BLOOD COUNT 6.3 K/mm3 (4.0-10.0)
[2020-09-25 08:42] LABS: POTASSIUM 3.8 mmol/L (3.5-5.1)
[2020-09-25 08:43] LABS: POTASSIUM 3.8 mmol/L (3.5-5.1)
[2020-09-25 08:51] LABS: BLOOD UREA NITROGEN 8.6 mg/dL (7-18); CALCIUM 7.9 mg/dL (8.5-10.1)
[2020-09-25 08:52] LABS: MAGNESIUM 1.9 mg/dL (1.8-2.4)
[2020-09-25 08:53] LABS: CALCIUM 7.9 mg/dL (8.5-10.1)
[2020-09-25 08:54] LABS: BLOOD UREA NITROGEN 8.7 mg/dL (7-18); PHOSPHOROUS 2.9 mg/dL (2.5-4.9)
[2020-09-25 08:55] LABS: CREATININE 0.5 mg/dL (0.55-1.3)
[2020-09-25 08:56] LABS: BILIRUBIN,TOTAL 0.8 mg/dL (0.2-1)
[2020-09-25 08:57] LABS: CREATININE 0.5 mg/dL (0.55-1.3); TOT PROT 4.9 g/dl (6.4-8.2)
[2020-09-25] MEDS: PANTOPRAZOLE SODIUM 40 MG VIAL IVPUSH SCH (09:36)
[2020-09-25] MEDS: LOSARTAN POTASSIUM 50 MG TABLET PO SCH (09:37)
[2020-09-25] MEDS: POLYETHYLENE GLYCOL 3350 119 GM BTL PO SCH (09:37)
[2020-09-25] MEDS: APIXABAN 5 MG TABLET PO SCH ×2 (09:37→21:08)
[2020-09-25] MEDS: SODIUM CHLORIDE 1 GM TABLET PO SCH ×2 (09:37→21:08)
[2020-09-25] MEDS: ASPIRIN COATED 81 MG TABLET.EC PO SCH (09:37)
[2020-09-25] MEDS: ROSUVASTATIN CA 10 MG TABLET (FP) PO SCH (21:08)
[2020-09-25] MEDS: SENNOSIDES 8.6MG TABLET (FP) PO SCH (21:08)
[2020-09-26 09:08] LABS: BASO % 0.2 % (0-2.0); EOS % 0.3 % (0-4.5); HEMATOCRIT 31.7 % (35.4-49); HEMOGLOBIN 10.9 GM/dL (11.7-16.9); LYMPH % 9.5 % (8-40); MCH 31.9 pg (25.7-33.7); MCHC 34.4 g/dl (32.0-35.9); MEAN PLT VOLUME 7.6 fl (7.5-11.1); MONO % 13.2 % (3.8-10.2); NEUT % 76.8 % (42.8-82.8); PLATELET COUNT 398 K/MM3 (134-434); RBC 3.41 M/mm3 (4.00-5.60); RDW 12.7 % (11.9-15.9); WHITE BLOOD COUNT 7.4 K/mm3 (4.0-10.0)
[2020-09-26 09:28] LABS: POTASSIUM 3.7 mmol/L (3.5-5.1)
[2020-09-26 09:35] LABS: ALBUMIN 2.1 g/dl (3.4-5.0); BLOOD UREA NITROGEN 11.4 mg/dL (7-18); CALCIUM 7.9 mg/dL (8.5-10.1); MAGNESIUM 1.9 mg/dL (1.8-2.4)
[2020-09-26 09:38] LABS: CREATININE 0.5 mg/dL (0.55-1.3)
[2020-09-26 09:39] LABS: PHOSPHOROUS 3.1 mg/dL (2.5-4.9)
[2020-09-26 09:40] LABS: BILIRUBIN,TOTAL 1.2 mg/dL (0.2-1); TOT PROT 5.1 g/dl (6.4-8.2)
[2020-09-26] MEDS: POLYETHYLENE GLYCOL 3350 119 GM BTL PO SCH (10:21)
[2020-09-26] MEDS: APIXABAN 5 MG TABLET PO SCH ×2 (10:22→23:48)
[2020-09-26] MEDS: SODIUM CHLORIDE 1 GM TABLET PO SCH ×2 (10:22→23:48)
[2020-09-26] MEDS: LOSARTAN POTASSIUM 50 MG TABLET PO SCH (10:22)
[2020-09-26] MEDS: ASPIRIN COATED 81 MG TABLET.EC PO SCH (10:22)
[2020-09-26] MEDS: PANTOPRAZOLE SODIUM 40 MG VIAL IVPUSH SCH (10:22)
[2020-09-26] MEDS: ROSUVASTATIN CA 10 MG TABLET (FP) PO SCH (23:48)
[2020-09-26] MEDS: SENNOSIDES 8.6MG TABLET (FP) PO SCH (23:48)
[2020-09-27 09:12] LABS: BASO % 0.4 % (0-2.0); EOS % 0.6 % (0-4.5); HEMATOCRIT 31.9 % (35.4-49); HEMOGLOBIN 10.8 GM/dL (11.7-16.9); LYMPH % 9.4 % (8-40); MCH 31.9 pg (25.7-33.7); MEAN CELL VOLUME 93.8 fl (80-96); MEAN PLT VOLUME 7.2 fl (7.5-11.1); MONO % 12.5 % (3.8-10.2); NEUT % 77.1 % (42.8-82.8); PLATELET COUNT 353 K/MM3 (134-434); RDW 12.6 % (11.9-15.9); WHITE BLOOD COUNT 7.2 K/mm3 (4.0-10.0)
[2020-09-27 09:33] LABS: ALBUMIN 2.2 g/dl (3.4-5.0); CALCIUM 8.4 mg/dL (8.5-10.1)
[2020-09-27 09:34] LABS: BLOOD UREA NITROGEN 10.3 mg/dL (7-18); MAGNESIUM 2.2 mg/dL (1.8-2.4)
[2020-09-27 09:37] LABS: CREATININE 0.7 mg/dL (0.55-1.3); PHOSPHOROUS 3.7 mg/dL (2.5-4.9)
[2020-09-27 09:38] LABS: BILIRUBIN,TOTAL 1.1 mg/dL (0.2-1); TOT PROT 5.2 g/dl (6.4-8.2)
[2020-09-27] MEDS: APIXABAN 5 MG TABLET PO SCH ×2 (11:12→21:43)
[2020-09-27] MEDS: SODIUM CHLORIDE 1 GM TABLET PO SCH ×2 (11:12→21:43)
[2020-09-27] MEDS: ASPIRIN COATED 81 MG TABLET.EC PO SCH (11:12)
[2020-09-27] MEDS: LOSARTAN POTASSIUM 50 MG TABLET PO SCH (11:12)
[2020-09-27] MEDS: PANTOPRAZOLE SODIUM 40 MG VIAL IVPUSH SCH (11:13)
[2020-09-27] MEDS: POLYETHYLENE GLYCOL 3350 119 GM BTL PO SCH (11:15)
[2020-09-27] MEDS: PANTOPRAZOLE 40 MG TABLET PO SCH (11:16)
[2020-09-27] MEDS: ROSUVASTATIN CA 10 MG TABLET (FP) PO SCH (21:43)
[2020-09-27] MEDS: SENNOSIDES 8.6MG TABLET (FP) PO SCH (21:44)
[2020-09-28] MEDS ORDERED: ACETAMINOPHEN 325 MG TABLET (FP) ONE (08:40)
[2020-09-28] MEDS: ACETAMINOPHEN 325 MG TABLET (FP) PO PRN (08:47)
[2020-09-28] MEDS: ASPIRIN COATED 81 MG TABLET.EC PO SCH (10:09)
[2020-09-28] MEDS: LOSARTAN POTASSIUM 50 MG TABLET PO SCH (10:09)
[2020-09-28] MEDS: POLYETHYLENE GLYCOL 3350 119 GM BTL PO SCH (10:10)
[2020-09-28] MEDS: SODIUM CHLORIDE 1 GM TABLET PO SCH (10:10)
[2020-09-28] MEDS: PANTOPRAZOLE 40 MG TABLET PO SCH (10:10)
[2020-09-28] MEDS: APIXABAN 5 MG TABLET PO SCH ×2 (10:10→21:27)
[2020-09-28 10:15] LABS: BASO % 0.4 % (0-2.0); EOS % 0.1 % (0-4.5); HEMATOCRIT 29.4 % (35.4-49); LYMPH % 11.2 % (8-40); MCHC 34.2 g/dl (32.0-35.9); MEAN CELL VOLUME 93.8 fl (80-96); MEAN PLT VOLUME 7.3 fl (7.5-11.1); MONO % 14.6 % (3.8-10.2); NEUT % 73.7 % (42.8-82.8); PLATELET COUNT 313 K/MM3 (134-434); RBC 3.14 M/mm3 (4.00-5.60); RDW 12.5 % (11.9-15.9); WHITE BLOOD COUNT 7.5 K/mm3 (4.0-10.0)
[2020-09-28 10:59] LABS: POTASSIUM 3.8 mmol/L (3.5-5.1)
[2020-09-28 11:12] LABS: ERYTHROCYTE SEDIMENTATION RATE 57 mm/hr (0-20)
[2020-09-28 11:19] LABS: BLOOD UREA NITROGEN 9.5 mg/dL (7-18)
[2020-09-28 11:20] LABS: ALBUMIN 2.2 g/dl (3.4-5.0); CALCIUM 7.9 mg/dL (8.5-10.1)
[2020-09-28 11:21] LABS: MAGNESIUM 2.1 mg/dL (1.8-2.4)
[2020-09-28 11:24] LABS: CREATININE 0.6 mg/dL (0.55-1.3); PHOSPHOROUS 3.4 mg/dL (2.5-4.9)
[2020-09-28 11:25] LABS: TOT PROT 5.1 g/dl (6.4-8.2)
[2020-09-28] MEDS: SENNOSIDES 8.6MG TABLET (FP) PO SCH (21:27)
[2020-09-28] MEDS: ROSUVASTATIN CA 10 MG TABLET (FP) PO SCH (21:27)
[2020-09-29 09:11] LABS: BASO % 0.3 % (0-2.0); EOS % 0.1 % (0-4.5); HEMOGLOBIN 9.8 GM/dL (11.7-16.9); LYMPH % 10.7 % (8-40); MCHC 33.8 g/dl (32.0-35.9); MEAN CELL VOLUME 94.8 fl (80-96); MEAN PLT VOLUME 7.6 fl (7.5-11.1); MONO % 17.5 % (3.8-10.2); NEUT % 71.4 % (42.8-82.8); PLATELET COUNT 314 K/MM3 (134-434); RBC 3.06 M/mm3 (4.00-5.60); RDW 12.7 % (11.9-15.9)
[2020-09-29 09:16] LABS: ALBUMIN 2.3 g/dl (3.4-5.0); BLOOD UREA NITROGEN 7.6 mg/dL (7-18); CALCIUM 8.1 mg/dL (8.5-10.1); MAGNESIUM 2.2 mg/dL (1.8-2.4)
[2020-09-29 09:17] LABS: PHOSPHOROUS 3.3 mg/dL (2.5-4.9)
[2020-09-29 09:19] LABS: BILIRUBIN,TOTAL 0.6 mg/dL (0.2-1); CREATININE 0.6 mg/dL (0.55-1.3); TOT PROT 5.3 g/dl (6.4-8.2)
[2020-09-29] MEDS ORDERED: SODIUM CHLORIDE 1 GM TABLET PO SCH (10:00)
[2020-09-29] MEDS ORDERED: PT OWN MED DRAWER 7, Y5N ONE (11:06)
[2020-09-29] MEDS: LOSARTAN POTASSIUM 50 MG TABLET PO SCH (11:07)
[2020-09-29] MEDS: PANTOPRAZOLE 40 MG TABLET PO SCH (11:07)
[2020-09-29] MEDS: APIXABAN 5 MG TABLET PO SCH ×2 (11:08→22:12)
[2020-09-29] MEDS: POLYETHYLENE GLYCOL 3350 119 GM BTL PO SCH (11:08)
[2020-09-29] MEDS: ASPIRIN COATED 81 MG TABLET.EC PO SCH (11:08)
[2020-09-29 14:08] LABS: ANISOCYTOSIS 1+; MACROCYTOSIS 0; PLATELET ESTIMATE NORMAL; TEAR DROP CELLS 1+
[2020-09-29] MEDS: SODIUM CHLORIDE 1 GM TABLET PO SCH (22:12)
[2020-09-29] MEDS: SENNOSIDES 8.6MG TABLET (FP) PO SCH (22:12)
[2020-09-29] MEDS: ROSUVASTATIN CA 10 MG TABLET (FP) PO SCH (22:12)
[2020-09-30 09:03] LABS: BASO % 0.3 % (0-2.0); HEMOGLOBIN 10.3 GM/dL (11.7-16.9); LYMPH % 16.2 % (8-40); MCH 32.2 pg (25.7-33.7); MCHC 34.2 g/dl (32.0-35.9); MEAN CELL VOLUME 94.1 fl (80-96); MEAN PLT VOLUME 7.3 fl (7.5-11.1); MONO % 15.1 % (3.8-10.2); NEUT % 68.4 % (42.8-82.8); PLATELET COUNT 300 K/MM3 (134-434); RBC 3.19 M/mm3 (4.00-5.60); RDW 12.3 % (11.9-15.9); WHITE BLOOD COUNT 8.2 K/mm3 (4.0-10.0)
[2020-09-30 09:22] LABS: POTASSIUM 4.2 mmol/L (3.5-5.1)
[2020-09-30 09:29] LABS: ALBUMIN 2.4 g/dl (3.4-5.0); CALCIUM 8.2 mg/dL (8.5-10.1)
[2020-09-30 09:30] LABS: BLOOD UREA NITROGEN 11.3 mg/dL (7-18)
[2020-09-30 09:33] LABS: CREATININE 0.7 mg/dL (0.55-1.3); PHOSPHOROUS 3.6 mg/dL (2.5-4.9)
[2020-09-30 09:34] LABS: BILIRUBIN,TOTAL 0.8 mg/dL (0.2-1); TOT PROT 5.4 g/dl (6.4-8.2)
[2020-09-30] MEDS: ASPIRIN COATED 81 MG TABLET.EC PO SCH (11:20)
[2020-09-30] MEDS: PANTOPRAZOLE 40 MG TABLET PO SCH (11:20)
[2020-09-30] MEDS: SODIUM CHLORIDE 1 GM TABLET PO SCH ×2 (11:20→22:23)
[2020-09-30] MEDS: APIXABAN 5 MG TABLET PO SCH ×2 (11:20→22:23)
[2020-09-30] MEDS: POLYETHYLENE GLYCOL 3350 119 GM BTL PO SCH (11:21)
[2020-09-30] MEDS: LOSARTAN POTASSIUM 50 MG TABLET PO SCH (11:21)
[2020-09-30] MEDS: ROSUVASTATIN CA 10 MG TABLET (FP) PO SCH (22:23)
[2020-09-30] MEDS: SENNOSIDES 8.6MG TABLET (FP) PO SCH (22:23)
[2020-10-01] MEDS: PANTOPRAZOLE 40 MG TABLET PO SCH (10:03)
[2020-10-01] MEDS: SODIUM CHLORIDE 1 GM TABLET PO SCH ×2 (10:03→21:08)
[2020-10-01] MEDS: LOSARTAN POTASSIUM 50 MG TABLET PO SCH (10:03)
[2020-10-01] MEDS: APIXABAN 5 MG TABLET PO SCH ×2 (10:03→21:08)
[2020-10-01] MEDS: ASPIRIN COATED 81 MG TABLET.EC PO SCH (10:04)
[2020-10-01] MEDS: POLYETHYLENE GLYCOL 3350 119 GM BTL PO SCH (14:28)
[2020-10-01] MEDS: ROSUVASTATIN CA 10 MG TABLET (FP) PO SCH (21:08)
[2020-10-01] MEDS: SENNOSIDES 8.6MG TABLET (FP) PO SCH (21:08)
[2020-10-01] MEDS ORDERED: PT OWN MED DRAWER 7, Y5N ONE (22:08)
[2020-10-02] MEDS: POLYETHYLENE GLYCOL 3350 119 GM BTL PO SCH ×2 (06:51→10:12)
[2020-10-02] MEDS: LOSARTAN POTASSIUM 50 MG TABLET PO SCH (10:06)
[2020-10-02] MEDS: PANTOPRAZOLE 40 MG TABLET PO SCH (10:06)
[2020-10-02] MEDS: APIXABAN 5 MG TABLET PO SCH ×2 (10:06→22:49)
[2020-10-02] MEDS: SODIUM CHLORIDE 1 GM TABLET PO SCH ×2 (10:06→22:49)
[2020-10-02] MEDS: ASPIRIN COATED 81 MG TABLET.EC PO SCH (10:06)
[2020-10-02] MEDS: SENNOSIDES 8.6MG TABLET (FP) PO SCH (22:49)
[2020-10-02] MEDS: ROSUVASTATIN CA 10 MG TABLET (FP) PO SCH (22:49)
[2020-10-03] MEDS: ACETAMINOPHEN 325 MG TABLET (FP) PO PRN (04:31)
[2020-10-03] MEDS: ASPIRIN COATED 81 MG TABLET.EC PO SCH (12:48)
[2020-10-03] MEDS: SODIUM CHLORIDE 1 GM TABLET PO SCH (12:48)
[2020-10-03] MEDS: APIXABAN 5 MG TABLET PO SCH (12:48)
[2020-10-03] MEDS: PANTOPRAZOLE 40 MG TABLET PO SCH (12:48)
[2020-10-03] MEDS: POLYETHYLENE GLYCOL 3350 119 GM BTL PO SCH (12:49)
[2020-10-03] MEDS: LOSARTAN POTASSIUM 50 MG TABLET PO SCH (12:49)
[2020-10-03 17:49] VITALS: BP 147/61; PULSE 60; TEMP 98
== END 2020-10-03 13:55 | disposition home or self-care (01) | DRG 177 ==
LOC: JER 02:07 → JERBED 09:00 → J5S 19:02
PROVIDERS: ATTEND Internal Medicine
PROC: XW13325 Transfusion of Convalescent Plasma (Nonautologous) into Peripheral Vein, Percutaneous Approach, New Technology Group 5 (ICD-10-PCS; principal; 2020-09-21)
PROC: XW033E5 Introduction of Remdesivir Anti-infective into Peripheral Vein, Percutaneous Approach, New Technology Group 5 (ICD-10-PCS; 2020-09-21)
DX: U07.1 COVID-19 (principal); J12.89 Other viral pneumonia; J96.01 Acute respiratory failure with hypoxia; E87.1 Hypo-osmolality and hyponatremia; Z68.1 Body mass index [BMI] 19.9 or less, adult; E22.2 Syndrome of inappropriate secretion of antidiuretic hormone; K56.7 Ileus, unspecified; K59.00 Constipation, unspecified; I10 Essential (primary) hypertension; E78.5 Hyperlipidemia, unspecified; K21.9 Gastro-esophageal reflux disease without esophagitis; I73.9 Peripheral vascular disease, unspecified; R63.0 Anorexia; I71.4 Abdominal aortic aneurysm, without rupture; I65.23 Occlusion and stenosis of bilateral carotid arteries; I25.10 Atherosclerotic heart disease of native coronary artery without angina pectoris; D64.9 Anemia, unspecified
CPT/HCPCS: 36415; 36430; 71045-TC-FY; 74018-TC-FY; 74176-TC; 80048; 80053; 81003; 82248; 82272; 82436; 82533; 82550; 82728; 83605; 83615; 83735; 83930; 83935; 84100; 84133; 84300; 84443; 84484; 85025; 85027; 85379; 85610; 85651; 85730; 86140; 86769; 86850; 86900; 86901; 87086; 93005; 93010; 94010; 94761; 97116-GP; 97161-GP; 99285-25; C9399; C9803; J0131; J1100; P9017; U0003